=== PATIENT | male | born 1950 | race Caucasian/White ===

== ENCOUNTER → 2018-02-03 14:46 | Outpatient (CLI) | payer MEDICARE, OTHER, SELFPAY ==
--- NOTE | 2018-02-03 14:52 | MR_ITS ---
MR shoulder RT wo con HISTORY: Right shoulder pain radiating into the arm with limited range of motion ITS.REASON: ACUTE PAIN OF RIGHT SHOULDER ORDERING PHYSICIAN: Nathanael Acevedo MD PATIENT AGE: 67 years COMPARISON: None TECHNIQUE: Standard multiplanar multiecho sequences are performed without contrast. FINDINGS: There is mild hypertrophic change along the undersurface of the acromion with mild subacromial stenosis. Mild acromioclavicular arthropathy also noted. There is mild thickening with increased T2 signal of the supraspinatus tendon consistent with tendinopathy/tendinosis. Minimal amount fluid is present in the distal aspect of the supraspinatus tendon posteriorly linear in nature and may represent partial tear. A complete tear with tendinous and muscle retraction not apparent. The infraspinatus tendon is intact. There is some mild thickening of the first benign is tendon with increased T2 signal consistent with tendinopathy/tendinosis. Subscapularis and teres minor tendons are intact. No evidence of labral tear. No bone bruise or fracture. IMPRESSION: 1. Acromioclavicular arthropathy with subacromial stenosis and minimal spurring along the undersurface of the acromion which may result in impingement symptomatology. 2. Tendinopathy/tendinosis of both supraspinatus and infraspinatus tendons with suspected partial linear tear of the distal aspect of the supraspinatus tendon posteriorly IMPRESSION:
== END ==
PROVIDERS: Family Provider Physician Assistant; PCP Family Medicine; Visit Provider Family Medicine
DX: M25.511 Pain in right shoulder (principal)
CPT/HCPCS: 73221

== ENCOUNTER → 2020-12-02 13:43 | Outpatient (CLI) | payer MEDICARE, BC, SELFPAY ==
--- NOTE | 2020-12-02 13:55 | XR_ITS ---
PROCEDURE: XR CHEST PORTABLE CLINICAL HISTORY: COVID SCREENING Cough COMPARISON: CR CXR CHEST(2 VIEWS-NOT PORTABLE) from 09/22/2016 CR CXR CHEST(2 VIEWS-NOT PORTABLE) from 12/04/2016 FINDINGS: The cardiomediastinal silhouette and pulmonary vascularity are within normal limits. COPD. Old granulomatous disease. Faint ground-glass attenuation right lower lobe laterally suspicious for infiltrate. Probable chronic changes left lower lobe. IMPRESSION: Suspect infiltrate in the right lower lobe laterally with chronic changes Dictated by: Derrek Lucero MD 12/02/2020 16:36 Derrek Lucero MD in [place] 12/02/2020 16:36
[2020-12-02 15:12] LABS: Basophils % 0.5 % (0.1-2.0); Eosinophils # 0.1 K/mm3 (0.0-0.4); Eosinophils % 0.7 % (0.1-12.0); Hematocrit 46.4 % (42.0-52.0); Hemoglobin 15.6 g/dL (14.1-18.0); Lymphocytes # 1.8 K/mm3 (0.7-4.5); Lymphocytes % 18.7 % (10-50); Mean Corpuscular HGB Conc 33.6 g/dL (31.8-35.4); Mean Corpuscular Hemoglobin 33.1 pg (27.0-31.2); Mean Corpuscular Volume 98.6 fl (80-94); Mean Platelet Volume 7.8 fl (7.4-10.4); Monocytes # 0.5 K/mm3 (0.1-1.0); Monocytes % 5.3 % (1.7-9.3); Neutrophils % 74.8 % (37.0-80.0); Platelet Count 235 K/mm3 (142-424); Red Blood Count 4.71 M/mm3 (4.60-6.20); Red Cell Distribution Width 13.6 % (11.5-17.5); White Blood Count 9.3 K/mm3 (4.8-10.8)
[2020-12-03 10:41] LABS: Covid-19 Nasal PCR Sendout P&C Negative
== END ==
PROVIDERS: PCP Physician Assistant; Visit Provider Nurse Practitioner
DX: Z20.822 Contact with and (suspected) exposure to COVID-19 (principal)
CPT/HCPCS: 36415; 71045; 85025; 87275; 87276; U0004

== ENCOUNTER → 2021-09-05 07:38 | Outpatient (CLI) | payer MEDICARE, BC, SELFPAY ==
--- NOTE | 2021-09-05 | CA_ITS ---
APPROVED REPORT Exam: Pharmacologic Technologist: Alba Ko, Ht: 5 ft 9 in Wt: 157 lbs BSA: 1.86 m2 HR: 65 bpm BP: 151/73 mmHg Rhythm: SINUS NATASHA Medical History Medications: Aspirin,,,,, Vitamin B12,,,,, Allergies: No known drug allergies Cardiac Risk Factors: Smoking Stress Test Details Test: LEXISCAN HR Resting HR: 63 bpm Max Heart Rate (APMHR): 150.125656 bpm Max HR Achieved: 104 bpm Target HR (85% APMHR): 127.729220 bpm % of APMHR: 69.33 Recovery HR: 91 bpm BP Resting BP: 151/73 mmHg Max BP: 159/93 mmHg Recovery BP: 159.0/93.0 mmHg ECG Resting ECG: SINUS NATASHA Clinical Reason for Termination: Completed Protocol Exercise duration: 04:01 min Highest Stage Achieved: Exercise capacity: 1.0 METs Stress ECG Conclusion PT HAD NO CP. <1.[address] SEGMENT CHANGES. NON-DIAGNOSTIC Electronically signed by : Sher Cohn MD 09/05/2021 14:29:55
--- NOTE | 2021-09-05 07:42 | NM_ITS ---
APPROVED REPORT Exam: Nuclear Stress Test Indication: C.P., TOB USE, FATIGUE Patient Location: Outpatient Stress Tech: Alba Ko NC Tech:EMELY Magallanes RT (R)(N)(M) Ht: 5 ft 9 in Wt: 157 lbs HR: 63 bpm BP: 151/73 mmHg BSA: 1.86 m2 BMI: 23.1 History: C.P., TOB USE, FATIGUE Procedure: Patient received a 0.4 mg of intravenous Lexiscan, resting heart rate 63 bpm, resting blood pressure 151/73 mmHg, with Lexiscan maximum heart rate achived was 101 bpm which is Less than 85 % of the maximum predicted heart rate and blood pressure was 140/77 mmHg. With Lexiscan, patient denied any complaint of chest pain. Electrocardiogram Resting electrocardiogram shows sinus rhythm, with Lexiscan there is less than 1.[address] segment depression noted from the baseline EKG. The EKG portion of the Lexiscan is nondiagnostic. Cardiac Stress and Resting SPECT Images: Cardiac Stress and Resting SPECT images were obtained using technetium 99m Myoview 31.4 mCi stress and 10.83 mCi at rest. Gated SPECT for analysis of segmental wall motion and calculation of the ejection fraction also done. Prone images were also obtained. Cardiac stress and resting SPECT images show a fixed defect involving the inferior apical wall consistent with area of myocardial scarring without significant stephen-infarct ischemia, computer derived ejection fraction is 48% with moderate inferior apical wall hypokinesis. Right ventricle is mildly enlarged with normal contractility. Conclusion: 1. The EKG portion of the Lexiscan is nondiagnostic. 2. Scintigraphic evidence of myocardial scarring involving the inferior apical wall, compared right ejection fraction 48% with segmental wall motion abnormalities described above, right ventricle is mildly enlarged with normal contractility. 3. Abnormal Lexiscan Myoview study. Electronically signed by : Sumeet Pressley MD 09/11/2021 14:49:05
== END ==
PROVIDERS: PCP Physician Assistant; Visit Provider Physician Assistant
DX: R07.9 Chest pain, unspecified (principal)
CPT/HCPCS: 78452; 93017; A9502; J2785

== ENCOUNTER → 2021-09-18 11:09 | Outpatient (CLI) | payer MEDICARE, BC, SELFPAY ==
--- NOTE | 2021-09-18 11:16 | CA_ITS ---
APPROVED REPORT Mixer Operator Tablets: Dana Son RVT Laterality: Bilateral Study Quality: ExcellentGood Indications: carotid bruit Risk Factors Smoking Doppler Spectral Velocity Analysis ECA (R) 61.70/12.90 cm/s ECA (L) 78.80/14.60 cm/s dICA (R) 89.10/38.60 cm/s dICA (L) 87.40/38.60 cm/s Hubert (R) 86.50/34.30 cm/s Hubert (L) 75.40/30.80 cm/s pICA (R) 66.80/30.80 cm/s pICA (L) 65.10/25.70 cm/s dCCA (R) 51.40/13.70 cm/s dCCA (L) 42.80/12.00 cm/s pCCA (R) 56.70/15.00 cm/s pCCA (L) 67.70/24.00 cm/s Vert (R) 33.40/12.00 cm/s Vert (L) 39.20/13.50 cm/s ICA/CCA 1.73 ICA/CCA 2.04 Findings Study suggests less than 20% stenosis of the right internal cartoid artery. Study suggests less than 20% stenosis of the left internal cartoid artery. Antegrade flow seen bilateral vertebral arteries. Conclusion Study suggests less than 20% stenosis of the right internal cartoid artery. Study suggests less than 20% stenosis of the left internal cartoid artery. Antegrade flow seen bilateral vertebral arteries. Electronically signed by : Derrek Lucero MD 09/18/2021 16:21:14
--- NOTE | 2021-09-18 11:16 | CA_ITS ---
APPROVED REPORT EXAM: Comprehensive 2D, Doppler, and color-flow Echocardiogram Assistant Oceanographer: Yany Tubbs, RCS, RVS Ht: 5 ft 9 in Wt: 159lbs BSA: 1.87 BP: 129/80 mmHg Indications: abn stress, CP, Smoker 2D Dimensions IVSd 1.04 cm M: 0.6-1.2 LVEF (Visual) 49.80 % PWd 1.05 cm M: 0.6 - 1.2 LVDd 4.13 cm M: 4.2 - 5.9 LVDs 3.10 cm M: 2.5 - 4.0 Aortic Root 4.02 cm M: 3.1 - 3.7 Left Atrium 3.30 cm M: 3.0 - 4.0 LVOT 2.12 cm (M/F) 1.5-2.5 M-Mode Dimensions LA Diam 2.84 cm (1.9-4.0) LVDd 5.10 cm (3.5-5.7) Ao Diam 3.57 cm (2.0-3.7) LVDs 3.80 cm (3.5-5.7) EF (Teich) 49.90% EPSs 0.18 cm FS 25.50% EDV (Teich) 123.80 mL TAPSE 2.15 (<1.7) ESV (Teich) 62.00 mL LV Diastology E Decel Time 190.00 (160-240 msec) E/A Ratio 0.60 MED E' 8.50 (< 7 cm/sec) MED A' 13.80 cm/s E'/MED E' Ratio 5.72 (>14) LAT E' 8.80 (<10 cm/sec) LAT A' 15.00 cm/s E/LAT E' Ratio 5.52 (>14) Aortic Valve LVOT Max 83.00 (70-110 cm/s) LVOT VTI 16.34 cm AoV Peak Moi. 101.00 (50-130 cm/s) AO Peak GR. 4.10 mmHg AO Mean GR. 2.00 (<5 mmHg) AO VTI 17.03 (18-25 cm) TAY (VTI) 3.39 (2.5-4.5 cm2) Mitral Valve MV A Velocity 81.00 (40-130 cm/s) E/A Ratio 0.60 MV Decel. Time 190.00 (160-240 ms) MV Mean Gr. 1.20 (<2mmHg) Pulmonary Valve PV Peak Velocity 80.00 (50-150 cm/s) Tricuspid Valve TR P. Velocity 153.00 cm/s RAP Estimate 10.00 mmHg RVSP 19.30 mmHg Left Ventricle Left atrium is mildly enlarged, left ventricle is normal size, mild concentric left ventricular hypertrophy, visually estimated ejection fraction 55% with no regional wall motion abnormality, grade 1 diastolic dysfunction seen without tissue Doppler evidence of raise left atrial pressure. Right Ventricle Right atrium and right ventricle are normal size and contractility. Aortic Valve Aortic valve is thickened and calcified without aortic stenosis or aortic insufficiency. Mitral Valve Mitral valve is grossly normal, there is trace mitral regurgitation. Tricuspid Valve Tricuspid valve grossly normal, there is trace tricuspid regurgitation, tricuspid regurgitation jet velocity is inadequate for calculation of the right ventricular systolic pressure. Pulmonic Valve Pulmonic valve is poorly visualized. Great Vessels Aortic root and ascending aorta is enlarged measuring 4.0 cm. Inferior vena cava is normal size with normal inspiratory collapse. Pericardium No significant pericardial effusion noted. Conclusion 1. Mildly enlarged left atrium, normal left ventricular size, mild concentric left ventricular hypertrophy, visually estimated ejection fraction 55% with no regional wall motion abnormality, grade 1 diastolic dysfunction seen without tissue Doppler evidence of raise left atrial pressure. 2. Thickened and calcified aortic valve without aortic stenosis or aortic insufficiency, aortic root and ascending aorta is enlarged measuring 4.0 cm, if clinically indicated CT scan of the chest with contrast is recommended to exclude presence of thoracic aneurysm. 3. Trace mitral and tricuspid regurgitation. 4. No significant pericardial effusion noted. 5. Inferior vena cava is normal size with normal inspiratory collapse. Electronically signed by : Sumeet Pressley MD 09/19/2021 10:46:19
== END ==
PROVIDERS: PCP Physician Assistant; Visit Provider Internal Medicine Cardiovascular Disease
DX: I20.9 Angina pectoris, unspecified (principal); K21.9 Gastro-esophageal reflux disease without esophagitis; R00.0 Tachycardia, unspecified; R06.00 Dyspnea, unspecified; R94.30 Abnormal result of cardiovascular function study, unspecified; R94.31 Abnormal electrocardiogram [ECG] [EKG]; Z72.0 Tobacco use; R09.89 Other specified symptoms and signs involving the circulatory and respiratory systems
CPT/HCPCS: 93306; 93880

== ENCOUNTER → 2021-09-19 10:11 | Outpatient (CLI) | payer MEDICARE, BC, SELFPAY ==
--- NOTE | 2021-09-19 10:15 | XR_ITS ---
PROCEDURE: XR CHEST PORTABLE CLINICAL HISTORY: COVID OUTPATIENT COMPARISON: CR CXR CHEST(2 VIEWS-NOT PORTABLE) from 09/22/2016 CR CXR CHEST(2 VIEWS-NOT PORTABLE) from 12/04/2016 CR XR CHEST PORTABLE from 12/02/2020 FINDINGS: The cardiomediastinal silhouette and pulmonary vascularity are within normal limits. The lungs are clear without infiltrates, suspicious nodules, or pleural effusions. There may be some minimal postinflammatory scarring in both lower lobes. There is a faint density left upper lobe projecting over the anterior aspect of the left 2nd rib which could be a small postinflammatory scar. No acute bony abnormalities. IMPRESSION: No acute findings. Dictated by: Dr. Vern Armstrong MD 09/19/2021 11:24 Dr. Vern Armstrong MD in [place] 09/19/2021 11:24
[2021-09-19 11:28] LABS: Basophils % 0.6 % (0.1-2.0); Eosinophils # 0.1 K/mm3 (0.0-0.4); Hematocrit 42.4 % (42.0-52.0); Hemoglobin 14.2 g/dL (14.1-18.0); Lymphocytes % 16.7 % (10-50); Mean Corpuscular HGB Conc 33.6 g/dL (31.8-35.4); Mean Corpuscular Hemoglobin 32.2 pg (27.0-31.2); Mean Corpuscular Volume 95.8 fl (80-94); Mean Platelet Volume 8.3 fl (7.4-10.4); Monocytes # 0.4 K/mm3 (0.1-1.0); Monocytes % 6.1 % (1.7-9.3); Neutrophils # 4.5 K/mm3 (1.8-7.8); Neutrophils % 75.5 % (37.0-80.0); Platelet Count 195 K/mm3 (142-424); Red Blood Count 4.43 M/mm3 (4.60-6.20); Red Cell Distribution Width 13.7 % (11.5-17.5)
== END ==
PROVIDERS: PCP Physician Assistant; Visit Provider Physician Assistant
DX: Z20.822 Contact with and (suspected) exposure to COVID-19 (principal)
CPT/HCPCS: 36415; 71045; 85025; C9803; U0003; U0005

== ENCOUNTER → 2021-10-13 13:21 | Outpatient (CLI) | payer MEDICARE, BC, SELFPAY ==
[2021-10-13 14:21] LABS: Basophils # 0.1 K/mm3 (0-0.2); Basophils % 0.7 % (0.1-2.0); Eosinophils # 0.1 K/mm3 (0.0-0.4); Eosinophils % 1.1 % (0.1-12.0); Hematocrit 40.4 % (42.0-52.0); Hemoglobin 13.8 g/dL (14.1-18.0); Lymphocytes # 1.3 K/mm3 (0.7-4.5); Lymphocytes % 19.1 % (10-50); Mean Corpuscular HGB Conc 34.3 g/dL (31.8-35.4); Mean Corpuscular Hemoglobin 32.1 pg (27.0-31.2); Mean Corpuscular Volume 93.5 fl (80-94); Monocytes # 0.4 K/mm3 (0.1-1.0); Monocytes % 5.9 % (1.7-9.3); Neutrophils % 73.2 % (37.0-80.0); Platelet Count 228 K/mm3 (142-424); Red Blood Count 4.32 M/mm3 (4.60-6.20); White Blood Count 6.8 K/mm3 (4.8-10.8)
[2021-10-13 14:45] LABS: Chloride 107 mmol/L (98-107); Potassium 4.2 mmoL/L (3.5-5.1); Sodium 141 mmol/L (136-145)
[2021-10-13 14:48] LABS: Blood Urea Nitrogen 14 mg/dl (9-20); Estimated Glomerular Filt Rate 60 ml/min (>60); GFR (African American) 72 ML/MIN (>60)
[2021-10-13 14:49] LABS: Anion Gap 11.2 mEq/L (5-15); Calcium 11.1 mg/dl (8.4-10.2); Carbon Dioxide 27 mmol/L (22.0-30.0); Glucose 84 mg/dl (74-100)
== END ==
PROVIDERS: Visit Provider Internal Medicine Cardiovascular Disease
DX: I20.9 Angina pectoris, unspecified (principal); K21.9 Gastro-esophageal reflux disease without esophagitis; R00.0 Tachycardia, unspecified; R09.89 Other specified symptoms and signs involving the circulatory and respiratory systems; R94.30 Abnormal result of cardiovascular function study, unspecified; R94.31 Abnormal electrocardiogram [ECG] [EKG]; Z72.0 Tobacco use; Z01.812 Encounter for preprocedural laboratory examination; U07.1 COVID-19
CPT/HCPCS: 36415; 80048; 85025; C9803; U0003; U0005

== ENCOUNTER 2021-10-28 09:10 | Day surgery (SDC) | payer MEDICARE, BC, SELFPAY ==
[2021-10-28] VITALS (14 sets, daily range): BP systolic 115–161; BP diastolic 67–87; PULSE 71–100; RESP 18; TEMP 36.9; O2SAT 92–98; BMI 23.4
[2021-10-28 09:48] LABS: Coronavirus 19, PCR Not Detected (NotDetected); Influenza A, PCR Not Detected (NotDetected); Influenza B, PCR Not Detected (NotDetected)
[2021-10-28 09:49] LABS: Basophils % 0.4 % (0.1-2.0); Eosinophils % 0.3 % (0.1-12.0); Hemoglobin 14.4 g/dL (14.1-18.0); Lymphocytes # 1.4 K/mm3 (0.7-4.5); Lymphocytes % 18.2 % (10-50); Mean Corpuscular HGB Conc 32.8 g/dL (31.8-35.4); Mean Corpuscular Hemoglobin 31.6 pg (27.0-31.2); Mean Corpuscular Volume 96.3 fl (80-94); Mean Platelet Volume 7.3 fl (7.4-10.4); Monocytes # 0.4 K/mm3 (0.1-1.0); Monocytes % 5.3 % (1.7-9.3); Neutrophils % 75.8 % (37.0-80.0); Platelet Count 269 K/mm3 (142-424); Red Blood Count 4.57 M/mm3 (4.60-6.20); White Blood Count 7.9 K/mm3 (4.8-10.8)
[2021-10-28 09:51] LABS: Chloride 107 mmol/L (98-107)
[2021-10-28 09:52] LABS: Potassium 3.9 mmoL/L (3.5-5.1); Sodium 141 mmol/L (136-145)
[2021-10-28 09:55] LABS: Anion Gap 12.9 mEq/L (5-15); Blood Urea Nitrogen 19 mg/dl (9-20); Calcium 10.7 mg/dl (8.4-10.2); Carbon Dioxide 25 mmol/L (22.0-30.0); Creatinine Clearance Estimated 64 mL/min (50-200); Estimated Glomerular Filt Rate 66 ml/min (>60); GFR (African American) 80 ML/MIN (>60); Glucose 94 mg/dl (74-100)
[2021-10-28 14:12] LABS: CATHL Activated Clotting Time > 400 SEC (74-125)
--- NOTE | 2021-10-28 14:21 | HMH.PHACLD ---
Juni Li has received discharge medication counseling on the following medications: -ASA -BRILINTA (HOW TO TAKE, WHAT TO EXPECT, IF YOU BUMP HEAD BE SEEN TO R/O BLEED, BLEED RISK) -BISOPROLOL (WATCH FOR DIZZINESS, TAKE IT SLOW WHEN GOING FROM LAYING TO SITTING/SITTING TO STANDING) -ROSUVASTATIN -KEMI/ARB-NOT INDICATED DUE TO HYPOTENSIVE ISSUES IN THE PAST PER PATIENT.
== END 2021-10-28 14:38 | disposition home or self-care (01) ==
LOC: CATHLAB 09:11
PROVIDERS: PCP Physician Assistant; Visit Provider Internal Medicine
DX: R94.39 Abnormal result of other cardiovascular function study (principal); I25.10 Atherosclerotic heart disease of native coronary artery without angina pectoris; Z79.899 Other long term (current) drug therapy; K21.9 Gastro-esophageal reflux disease without esophagitis; F17.210 Nicotine dependence, cigarettes, uncomplicated; Z20.822 Contact with and (suspected) exposure to COVID-19
CPT/HCPCS: 80048; 85025; 85347; 92928; 93458; 99152; C1725; C1769; C1874; C9600; C9803; J1644; Q9967; U0003; U0005

== ENCOUNTER → 2021-11-03 15:52 | Outpatient (CLI) | payer MEDICARE, BC, SELFPAY ==
--- NOTE | 2021-11-03 15:55 | CT_ITS ---
PROCEDURE: CT ABDOMEN PELVIS WO CON CLINICAL INDICATION: RENAL COLIC COMPARISON: CT ABDPELW/O CT ABD PELVIS W/O CONTRAST from 07/03/2016 CR XR CHEST PORTABLE from 09/19/2021 TECHNIQUE: Axial images obtained with sagittal and coronal reformats. All CT scans at the facility use one or more dose reduction, viz: automated exposure control, ma/kV adjustment per patient size (including targeted exams where dose is matched to indication, i.e. head), or iterative reconstruction technique. FINDINGS: LOWER THORAX: COPD changes with centrilobular emphysema. Calcified granulomas present in the right lung base laterally. A nodular opacity is present in the right posterior costophrenic sulcus at 8 mm not readily apparent on the previous exam. Calcifications present along the right heart border ABDOMEN & PELVIS: The liver has an unremarkable appearance. Gallstones are noted. The spleen, adrenal glands, and pancreas have an unremarkable appearance. There are bilateral renal calculi which have increased in number since the previous exam. The largest stone on the right is in the upper pole and measures 5 mm. The largest on the left is in the lower pole and measures 6 mm. No ureteral calculi are evident. The urinary bladder is somewhat distended. The prostate is enlarged at 4.3 by 3.6 cm. No intestinal obstruction or free air. There is a mild amount of retained colonic feces in the ascending colon and transverse colon. There is mild lumbar scoliosis convex right with degenerative changes in the lumbar spine. IMPRESSION: 1. Bilateral nephrolithiasis. No ureteral calculi or hydronephrosis. 2. Mildly distended urinary bladder 3. Cholelithiasis Dictated by: Derrek Lucero MD 11/03/2021 16:33 Derrek Lucero MD in [place] 11/03/2021 16:33
== END ==
PROVIDERS: PCP Family Medicine; Visit Provider Family Medicine
DX: N23 Unspecified renal colic (principal)
CPT/HCPCS: 74176

== ENCOUNTER → 2021-11-13 14:17 | Outpatient (CLI) | payer MEDICARE, BC, SELFPAY ==
--- NOTE | 2021-11-13 14:20 | CA_ITS ---
FINAL REPORT CLINICAL HISTORY: S/P CATH ON 10/29/21, C/O RT WRIST PAIN,R/O PSEUDO FINDINGS: DUPLEX SCAN UPPER EXTREMITY ARTERIES Doppler exam of major artery of the right wrist was performed. There is no evidence of pseudoaneurysm or AV fistula. No hematoma is identified. IMPRESSION. Negative for pseudoaneurysm or AV fistula. Reviewed, Interpreted and Dictated by Zack Lemon MD Transcribed by Abby Castro Authenticated by Zack Lemon MD on 11/13/2021 03:54:06 PM [facility]
== END ==
PROVIDERS: PCP Family Medicine; Visit Provider Physician Assistant
DX: I20.9 Angina pectoris, unspecified (principal); K21.9 Gastro-esophageal reflux disease without esophagitis; R00.0 Tachycardia, unspecified; R06.00 Dyspnea, unspecified; R09.89 Other specified symptoms and signs involving the circulatory and respiratory systems; R11.10 Vomiting, unspecified; R94.31 Abnormal electrocardiogram [ECG] [EKG]; Z72.0 Tobacco use
CPT/HCPCS: 93931

== ENCOUNTER 2022-02-03 19:33 | Observation (INO) | payer MEDICARE, BC, SELFPAY ==
[2022-02-03] VITALS (8 sets, daily range): BP systolic 91–108; BP diastolic 53–63; PULSE 69–96; RESP 17–28; TEMP 36.9–37.9; O2SAT 93–98; BMI 23.1; BMI 23.2; BMI 27.6
[2022-02-03 20:48] LABS: UTC Influenza A Antigen Negative (Negative); UTC Influenza B Antigen Negative (Negative)
--- NOTE | 2022-02-03 20:54 | XR_ITS ---
PROCEDURE INFORMATION: Exam: XR Chest Exam date and time: 02/03/2022 9:00 PM Age: 71 years old Clinical indication: Cough and shortness of breath; Additional info: Cough and SOB TECHNIQUE: Imaging protocol: XR of the chest. Views: 2 views. COMPARISON: CR XR CHEST PORTABLE 09/19/2021 11:15 AM FINDINGS: Lungs: Coarse interstitial lung markings likely chronic. Granulomatous changes. No consolidation. Pleural spaces: Unremarkable. No pleural effusion. No pneumothorax. Heart/Mediastinum: Large hiatal hernia. Bones/joints: Unremarkable. IMPRESSION: No acute findings.
--- NOTE | 2022-02-03 20:55 | HMH.EDUTC ---
[facility] [place] Disposition Condition on Discharge: Fair Time of Disposition: 21:13 <DeutschKadi smith E - Last Filed: 02/03/22 22:04> <Tushar Melvin - Last Filed: 02/04/22 00:07> Clinical Impression: Shortness of breath, Acute exacerbation of chronic obstructive airways disease, SIRS (systemic inflammatory response syndrome), Tobacco use CAD (coronary artery disease) Qualifiers: Coronary Disease-Associated Artery/Lesion type: ute artery [place] vs. transplanted heart: ute heart Associated angina: unspecified whether angina present Qualified Code(s): I25.10 - Atherosclerotic heart disease of ute coronary artery without angina pectoris Disposition: Admitted As Inpatient Medical Decision Making - Kyree Inquiry Pt receiving controlled substance: No Kyree was queried for this patient: No - Lab Data Lab results reviewed: Yes: I reviewed the patient's lab results. Result diagrams: 02/03/22 21:29 02/03/22 21:29 <Kadi Deutsch E - Last Filed: 02/03/22 22:04> - Lab Data Result diagrams: 02/03/22 21:29 02/03/22 21:29 - Radiology Data #1 Image(s): Chest Image Reviewed: Yes I have reviewed radiologist's interpretation Preliminary Findings: Normal/NAD - CT Data CT Scan: Chest Time Received: 23:[address] Reviewed: Yes: I have viewed the radiologist's interpretation Preliminary Findings: Abnormal - ECG Data Tracing #1 Normal Sinus Rhythm: Yes Ischemic changes: non-specific ST-T wave changes ECG compared to prior tracings: there are no significant changes - Physician Consults Physician Consulted: senia Reason -: Admission Additional Consult: lyn Reason -: Pt condition <Tushar Melvin - Last Filed: 02/04/22 00:07> Vital Signs: 02/03/22 20:38 02/03/22 21:15 02/03/22 21:16 Temperature 98.5 F 100.2 F H Temperature Source Oral Rectal Pulse Rate 88 Pulse Rate [Left] 96 H 78 Respiratory Rate 28 H 24 Blood Pressure 108/57 L Blood Pressure [Right Arm] 102/63 L 108/57 L Blood Pressure Mean 72 Blood Pressure Mean [Right Arm] 76 74 02 Sat by Pulse Oximetry 94 L 95 93 L Oxygen Delivery Method Room Air 02/03/22 21:35 02/03/22 22:00 02/03/22 22:30 Temperature Temperature Source Pulse Rate 82 83 76 Pulse Rate [Left] Respiratory Rate 17 19 19 Blood Pressure 91/56 L 100/55 L 94/53 L Blood Pressure [Right Arm] Blood Pressure Mean 63 62 Blood Pressure Mean [Right Arm] 02 Sat by Pulse Oximetry 95 98 97 Oxygen Delivery Method Room Air 02/03/22 23:00 02/03/22 23:30 Temperature Temperature Source Pulse Rate 74 69 Pulse Rate [Left] Respiratory Rate 19 21 Blood Pressure 99/60 L 96/55 L Blood Pressure [Right Arm] Blood Pressure Mean Blood Pressure Mean [Right Arm] 02 Sat by Pulse Oximetry 95 95 Oxygen Delivery Method Room Air Room Air - Lab Data Lab Results 02/03/22 20:35: Influenza Type A Ag Negative, Influenza Type B Ag Negative 02/03/22 21:21: SARS-CoV-2 (PCR) Not detected, Influenza A Untype (PCR) Not detected, Influenza Type B (PCR) Not detected 02/03/22 21:29: WBC 16.8 H, RBC 4.58 L, Hgb 14.9, Hct 44.6, MCV 97.4 H, MCH 32.6 H, MCHC 33.4, RDW 13.3, Plt Count 216, MPV 8.8, Neut % (Auto) 91.3 H, Lymph % (Auto) 4.6 L, [place] % (Auto) 3.2, Eos % (Auto) 0.6, Baso % (Auto) 0.3, Neut # (Auto) 15.3 H, Lymph # (Auto) 0.8, [place] # (Auto) 0.5, Eos # (Auto) 0.1, Baso # (Auto) 0.1, Total Counted 100, Neutrophils % (Manual) 86 H, Lymphocytes % (Manual) 13, Monocytes % (Manual) 1 L, Platelet Estimate Normal, RBC Morphology Not Reportable, Macrocytosis 1+, ESR 16 02/03/22 21:29: Sodium 135 L, Potassium 4.2, Chloride 105, Carbon Dioxide 20 L, Anion Gap 14.2, BUN 25 H, Creatinine 1.30 H, Estimated Creat Clear 52, Estimated GFR 54 L, Est GFR ( Amer) 66, Glucose 132 H, Calcium 11.1 H, Total Bilirubin 1.0, AST 30, ALT 21, Alkaline Phosphatase 116, Troponin I < 0.01, C-Reactive Protein 37.3 H, Total Protein 7.5, Albumin 4.6, Globulin 2.9, Albumin/Globulin Rati
--- NOTE | 2022-02-03 21:20 | ECG_ITS ---
APPROVED REPORT Exam: Resting ECG HR:76 bpm ECG Measurements Heart Rate 76 AXES MO 155 P 77 QRSd 101 QRS 66 QT 380 T 84 QTc 411 Conclusion SINUS RHYTHM NORMAL ECG UNCONFIRMED REPORT Electronically signed by : Kenny Carter MD 02/05/2022 16:04:20
--- NOTE | 2022-02-03 21:22 | CT_ITS ---
PROCEDURE INFORMATION: Exam: CTA Chest With Contrast Exam date and time: 02/03/2022 10:12 PM Age: 71 years old Clinical indication: Patient HX: Shortness of breath, cough; Additional info: SOA TECHNIQUE: Imaging protocol: Computed tomographic angiography of the chest with contrast. 3D rendering (Not supervised by radiologist): MIP and/or 3D reconstructed images were created by the technologist. Radiation optimization: All CT scans at this facility use at least one of these dose optimization techniques: automated exposure control; mA and/or kV adjustment per patient size (includes targeted exams where dose is matched to clinical indication); or iterative reconstruction. Contrast material: ISOVUE 370; Contrast volume: 70 ml; Contrast route: INTRAVENOUS (IV); COMPARISON: CR XR CHEST 2V 02/03/2022 9:00 PM FINDINGS: Pulmonary arteries: Normal. No pulmonary emboli. Aorta: Unremarkable. No aortic aneurysm. No aortic dissection. Lungs: Chronic interstitial lung disease. Emphysema. 5 mm pulmonary nodule in the right upper lobe series 5, image number 42, series 5, image number 48, left upper lobe series 5, image number 15, 1 cm nodule left upper lobe series 5, image number 27. Dependent atelectasis in the lung bases. Pleural spaces: Unremarkable. No pneumothorax. No pleural effusion. Heart: Unremarkable. No cardiomegaly. No pericardial effusion. Lymph nodes: Unremarkable. No enlarged lymph nodes. Bones/joints: Unremarkable. No acute fracture. Soft tissues: Unremarkable. IMPRESSION: 1. No pulmonary embolism. 2. Bilateral pulmonary nodules. 3. No pneumonia. For patients at low risk (minimal or absent history of smoking and of other known risk factors), no routine follow-up is indicated. For patients at high risk (history of smoking or of other known risk factors), consider optional CT at 12 months. (will Conway., Fleischner Society, 2017)
[2022-02-03 21:26] LABS: Coronavirus 19, PCR Not Detected (NotDetected); Influenza A, PCR Not Detected (NotDetected); Influenza B, PCR Not Detected (NotDetected)
[2022-02-03 21:37] LABS: Basophils # 0.1 K/mm3 (0-0.2); Basophils % 0.3 % (0.1-2.0); Eosinophils # 0.1 K/mm3 (0.0-0.4); Eosinophils % 0.6 % (0.1-12.0); Hematocrit 44.6 % (42.0-52.0); Hemoglobin 14.9 g/dL (14.1-18.0); Lymphocytes # 0.8 K/mm3 (0.7-4.5); Lymphocytes % 4.6 % (10-50); Mean Corpuscular HGB Conc 33.4 g/dL (31.8-35.4); Mean Corpuscular Hemoglobin 32.6 pg (27.0-31.2); Mean Corpuscular Volume 97.4 fl (80-94); Mean Platelet Volume 8.8 fl (7.4-10.4); Monocytes # 0.5 K/mm3 (0.1-1.0); Monocytes % 3.2 % (1.7-9.3); Neutrophils # 15.3 K/mm3 (1.8-7.8); Neutrophils % 91.3 % (37.0-80.0); Platelet Count 216 K/mm3 (142-424); Red Blood Count 4.58 M/mm3 (4.60-6.20); Red Cell Distribution Width 13.3 % (11.5-17.5); White Blood Count 16.8 K/mm3 (4.8-10.8)
[2022-02-03 21:52] LABS: Alanine Aminotransferase 21 U/L (12-78); Albumin Level 4.6 g/dl (3.5-5.0); Albumin/Globulin Ratio 1.6 (1.1-1.8); Alkaline Phosphatase 116 U/L (38-126); Anion Gap 14.2 mEq/L (5-15); Aspartate Amino Transferase 30 U/L (17-59); Blood Urea Nitrogen 25 mg/dl (9-20); Calcium 11.1 mg/dl (8.4-10.2); Carbon Dioxide 20 mmol/L (22.0-30.0); Chloride 105 mmol/L (98-107); Creatinine Clearance Estimated 52 mL/min (50-200); Estimated Glomerular Filt Rate 54 ml/min (>60); GFR (African American) 66 ML/MIN (>60); Globulin 2.9 g/dL (1.3-3.2); Glucose 132 mg/dl (74-100); MANUAL DIFFERENTIAL MANUAL DIFFERENTIAL (MANUAL DIFF); Potassium 4.2 mmoL/L (3.5-5.1); Sodium 135 mmol/L (136-145); Total Protein,Serum 7.5 g/dl (6.3-8.2)
[2022-02-03 21:58] LABS: C-Reactive Protein 37.3 mg/L (0-4)
[2022-02-03 22:04] LABS: Erythrocyte Sedimentation Rate 16 mm/hr (0-20); NT Pro Brain Natriuretic Pep. 417 pg/mL (0-125)
[2022-02-03 22:08] LABS: Troponin I < 0.01 ng/ml (0.00-0.034)
[2022-02-03 22:11] LABS: Procalcitonin 0.278 ng/mL (0.0-2.0)
[2022-02-03 23:13] LABS: Lymphocytes % 13 % (10-50); Macrocytosis 1+; Monocytes % 1 % (2-9); Neutrophils % 86 % (42-76); Platelet Estimate Normal; Total Cells Counted 100
[2022-02-03 23:29] LABS: Lactic Acid 1.3 mmol/L (0.7-2.1)
[2022-02-04] VITALS (11 sets, daily range): BP systolic 96–122; BP diastolic 59–71; PULSE 60–79; RESP 16–24; TEMP 36.5–37.3; O2SAT 92–99; BMI 21.9
--- NOTE | 2022-02-04 00:29 | PC.NURSE ---
pt arrived to floor via stretcher at this time
[2022-02-04 00:56] LABS: Troponin I < 0.01 ng/ml (0.00-0.034)
[2022-02-04 02:10] LABS: Microscopic, Urine URINE MICROSCOPIC (MICROSCOPIC)
[2022-02-04 02:19] LABS: Appearance,Urine CLEAR (Clear); Bilirubin,Urine Negative (Negative); Blood, Urine 1+ (Negative); Color,Urine YELLOW (Yellow); Glucose,Urine (UA) Negative (Negative); Ketones,Urine Negative (Negative); Leukocyte Esterase,Urine Negative (Negative); Nitrate,Urine Negative (Negative); Protein,Urine Negative (Negative)
[2022-02-04 02:35] LABS: Bacteria,Urine 1+ /lpf; Squamous Epithelial Cell,Urine Occasional #/hpf (0-5)
[2022-02-04 03:54] LABS: Troponin I < 0.01 ng/ml (0.00-0.034)
[2022-02-04 06:24] LABS: Basophils % 0.1 % (0.1-2.0); Lymphocytes # 0.5 K/mm3 (0.7-4.5); Mean Corpuscular Hemoglobin 32.7 pg (27.0-31.2)
[2022-02-04 06:33] LABS: Anion Gap 11.2 mEq/L (5-15); Blood Urea Nitrogen 21 mg/dl (9-20); Calcium 10.5 mg/dl (8.4-10.2); Carbon Dioxide 19 mmol/L (22.0-30.0); Chloride 109 mmol/L (98-107); Creatinine Clearance Estimated 64 mL/min (50-200); Estimated Glomerular Filt Rate 74 ml/min (>60); GFR (African American) 89 ML/MIN (>60); Glucose 180 mg/dl (74-100); Potassium 4.2 mmoL/L (3.5-5.1); Sodium 135 mmol/L (136-145)
[2022-02-04 07:04] LABS: Hematocrit 40.4 % (42.0-52.0); Lymphocytes % 3.3 % (10-50); Mean Corpuscular HGB Conc 33.7 g/dL (31.8-35.4); Mean Corpuscular Volume 96.9 fl (80-94); Monocytes # 0.1 K/mm3 (0.1-1.0); Monocytes % 0.9 % (1.7-9.3); Neutrophils # 14.8 K/mm3 (1.8-7.8); Neutrophils % 95.7 % (37.0-80.0); Platelet Count 204 K/mm3 (142-424); Red Blood Count 4.17 M/mm3 (4.60-6.20); Red Cell Distribution Width 13.3 % (11.5-17.5); White Blood Count 15.5 K/mm3 (4.8-10.8)
[2022-02-04 07:05] LABS: Hemoglobin 13.6 g/dL (14.1-18.0)
[2022-02-04 07:06] LABS: MANUAL DIFFERENTIAL MANUAL DIFFERENTIAL (MANUAL DIFF)
--- NOTE | 2022-02-04 07:09 | P.CONPHA_ITS ---
[facility] VTE Monitoring - Patient Demographics Admission date: 02/03/22 Report Date: 02/04/22 Time: 07:09 Allergies/Adverse Reactions: Patient Allergies clopidogrel [From Plavix] Adverse Reaction (Mild, Verified 02/04/22 00:35) Vomiting ticagrelor [From Brilinta] Adverse Reaction (Mild, Verified 02/04/22 00:35) dyspnea metoprolol Adverse Reaction (Verified 02/04/22 00:35) PNEUMONIA VACCINE Allergy (Unknown, Uncoded 10/26/17 14:03) SWELLING Height: 1.75 m Weight: 67.222 kg Patient Problems: Current Active Problems Shortness of breath (Acute) Acute exacerbation of chronic obstructive airways disease (Acute) SIRS (systemic inflammatory response syndrome) (Acute) CAD (coronary artery disease) (Chronic) Tobacco use (Chronic) - VTE Risk Labs: VTE Related Lab Results Hgb 13.6 g/dL (14.1-18.0) L 02/04/22 05:53 Hct 40.4 % (42.0-52.0) L 02/04/22 05:53 Plt Count 204 K/mm3 (142-424) 02/04/22 05:53 BUN 21 mg/dl (9-20) H 02/04/22 05:53 Creatinine 1.00 mg/dl (0.66-1.25) D 02/04/22 05:53 Estimated Creat Clear 64 mL/min (50-200) 02/04/22 05:53 VTE Score: 6 VTE Risk Level: Moderate Risk - Prophylaxis VTE Prophylaxis Ordered?: Yes Types of VTE Prophylaxis: TEDS Knee High Location of Applied Device: Bilateral Lower Extremeties
--- NOTE | 2022-02-04 07:28 | HMH.PHAINT ---
MEDICATION RECONCILIATION COMPLETED ON PATIENT USING EXTERNAL FILL HISTORY FROM PHARMACY AND LIST FROM CARDIOLOGY VISIT ON 01/12/22. -JERI JOHNSOND
[2022-02-04 07:42] LABS: Lymphocytes % 5 % (10-50); Macrocytosis 1+; Monocytes % 2 % (2-9); Neutrophils % 93 % (42-76); Platelet Estimate Normal; Total Cells Counted 100
--- NOTE | 2022-02-04 08:13 | HMH.HP ---
*Admission Date: 02/03/22 <Yoko Sarabia - 02/04/22 08:36> *Chief complaint: Cough and shortness of breath <Yoko Sarabia - 02/04/22 08:36> *History of present illness: Mr. Li is a 71-year-old male patient with a history of COPD, tobacco use disorder (he smokes 2 packs/day), kidney stones, coronary artery disease, and hypertension who presented to the urgent treatment center last p.m. after experiencing progressive shortness of breath yesterday. He states he has had a cough since coronary stent placements in November 2021. So he decided to change his brand of cigarettes with the thought that this might help. He changed 2 days ago and he said his cough completely was resolved. Then the cough came back yesterday and progressively worsened and he was very short of breath. The cough has been productive at times. He has been using an inhaler at home as needed. He denies chest pain and only the shortness of breath. He states he has been eating and drinking normally for him. He has been active and even when outside walking in the cold weather with his daughter 2 days ago. He denies fever. With evaluation in the emergency room he had a CTA of the chest which showed no pulmonary embolism, bilateral pulmonary nodules and no pneumonia. Laboratory data showed elevated white blood cell count at 16,800 with some improvement this a.m. of 15,500. Renal function shows a BUN of 25 and creatinine 1.3. troponin I's have been normal x3. Liver function studies are normal. Lactate is normal at 1.3. Covid and flu test were all negative. With his symptoms and low O2 sats and blood pressure patient was transferred to the emergency room. He was noted to have a fever of 100.2. Blood pressure was low with systolic ranging in the 80s and low 90s. Zithromax and Rocephin IV were initiated. He was also given Xopenex breathing treatment as well as Solu-Medrol 125 mg IV. He was then admitted for further evaluation and treatment. This a.m. patient is feeling much better. He is able to eat breakfast. He continues with a congested cough. He denies chest pain. <Yoko Sarabia - 02/04/22 08:36> [facility] History Medical History: Reports:: Chronic Obstructive Pulmonary Disease (COPD), Coronary Artery Disease, Gastroesophageal Reflux Disease(GERD), Hyperlipidemia, Hypertension, Kidney Stones, Renal Insufficiency Denies:: Cancer, Diabetes Mellitus Type 1, Diabetes Mellitus Type 2, MRSA, Seizures <CornellYoko 02/04/22 08:36> *Have you ever received a pneumonia vaccine?: Yes <CornellYoko 02/04/22 08:36> *Have you received a flu vaccine this season?: Yes <Sarabia,Yoko 02/04/22 08:36> Other Surgeries: Yes: Cardiac Catheterization, Coronary Stent <SarabiaYoko 02/04/22 08:36> Amputation: No <SarabiaYoko - 02/04/22 08:36> Fractures: No <SarabiaYoko 02/04/22 08:36> - *Social History Smoking Status: Current every day smoker <SarabiaYoko 02/04/22 08:36> Tobacco Type: cigarettes <CornellYoko 02/04/22 08:36> # Packs/Day (cigarettes): 2 <SarabiaYoko 02/04/22 08:36> Alcohol Intake: current <SarabiaYoko 02/04/22 08:36> Alcohol Intake Frequency:: holidays/special occasions only <SarabiaYoko 02/04/22 08:36> *Occupational Status:: retired <SarabiaYoko 02/04/22 08:36> Housing: house <SarabiaYoko 02/04/22 08:36> Household Members: spouse <SarabiaYoko 02/04/22 08:36> *Travel in the last 8 weeks: None <Sarabia,Yoko - 02/04/22 08:36> Family Hx:: Cancer, Coronary Artery Disease, Diabetes <Yoko Sarabia 02/04/22 08:36> Review of Systems - Constitutional Denies headache(s) <Yoko Sarabia 02/04/22 08:36> - Eyes Denies change in vision <Yoko Sarabia 02/04/22 08:36> - ENT Reports sore throat, Denies ear pain <Yoko Sarabia 02/04/22 08:36> - *Cardiovascular Reports shortness of breath, Denies chest pain, Denies leg swelling <Yoko Sarabia - 02/04/22 08:36> - *Respiratory Reports chest congestio
--- NOTE | 2022-02-04 17:26 | PC.NURSE ---
Pt is alert and oriented x4. He's been pleasant and cooperative with care. Lungs are clear but diminished. He remains on 2L NC w/O2 sats measuring 92-94%. He's been afebrile this shift. He's used a urinal at the bedside. Denied any complaints except that he wants to go home. Family has been to visit and has been updated on poc.
[2022-02-05] VITALS: BP 108/74; PULSE 76; PULSE 81; RESP 18; TEMP 36.6; O2SAT 94
[2022-02-05 04:00] VITALS: BP 130/51; PULSE 69; PULSE 77; RESP 20; TEMP 36.5; O2SAT 94
[2022-02-05 05:00] VITALS: BMI 22.1
[2022-02-05 06:34] VITALS: PULSE 68; PULSE 69; O2SAT 96
[2022-02-05 08:00] VITALS: BP 115/73; PULSE 80; PULSE 83; RESP 16; TEMP 36.6; O2SAT 94
--- NOTE | 2022-02-05 08:21 | HMH.ACPN2 ---
<Jess Tran - Last Filed: 02/05/22 08:21> Internal Medicine - PN: Subj *Date: 02/05/22 *Time: 08:21 Interval history: Patient states he is feeling better today. His breathing is improved and he is going to try to take off his oxygen and we will check room air sats in a few minutes. He denies any pain today and slept well and is eating well. Exam Vital signs and Labs for Last 24 Hours: Temp Pulse Resp BP Pulse Ox 97.7 F 68 20 130/51 L 96 02/05/22 04:00 02/05/22 06:34 02/05/22 04:00 02/05/22 04:00 02/05/22 06:34 I & O for Last 24 hours: Intake & Output 02/02/22 02/03/22 02/04/22 02/05/22 11:59 11:59 11:59 11:59 Intake Total 1330 / 1330 915 / 915 Output Total 1200 / 1200 2401 / 2401 Balance 130 / 130 -1486 / -1486 Weight 148 lb 2.41 oz 149 lb 3 oz Microbiology Reports for the Last 24 Hours: Microbiology 02/04/22 11:16 Sputum - Expectorated Sputum Gram Stain - Final - Constitutional no acute distress - *Routine Respiratory Exam Present: CTA bilaterally - *Routine Cardiovascular Exam Present: RRR - *Routine Abdominal Exam Present: soft, normoactive bowel sounds. Absent: tenderness - *Routine Extremities Exam Absent: cyanosis, clubbing, edema - *Routine Skin Exam Present: warm. Absent: rash - *Routine Neurological Exam Present: alert, oriented X3 Assessment and Plan (1) Acute exacerbation of chronic obstructive airways disease Status: Acute Category: Medical Code(s): J44.1 - Chronic obstructive pulmonary disease with (acute) exacerbation (2) Hypotension Status: Acute Category: Medical Code(s): I95.9 - Hypotension, unspecified (3) Renal insufficiency Status: Acute Category: Medical Code(s): N28.9 - Disorder of kidney and ureter, unspecified (4) Shortness of breath Status: Acute Category: Medical Code(s): R06.02 - Shortness of breath (5) CAD (coronary artery disease) Status: Chronic Qualifiers: Coronary Disease-Associated Artery/Lesion type: [place] artery [place] vs. transplanted heart: [place] heart Associated angina: unspecified whether angina present Qualified Code(s): I25.10 - Atherosclerotic heart disease of [place] coronary artery without angina pectoris Category: Medical Code(s): I25.10 - Atherosclerotic heart disease of [place] coronary artery without angina pectoris (6) Tobacco use Status: Chronic Category: Social Hx Code(s): Z72.0 - Tobacco use - Assessment and plan all Dx Assessment and Plan for all problems:: Patient is feeling better today. Will check room air sats and may be able to discharge later on today. <Nathanael Acevedo - Last Filed: 02/05/22 13:23> Internal Medicine - PN: Subj *Date: 02/05/22 *Time: 13:22 Exam Vital signs and Labs for Last 24 Hours: Temp Pulse Resp BP Pulse Ox 97.8 F 73 19 128/76 92 L 02/05/22 12:00 02/05/22 12:00 02/05/22 12:00 02/05/22 12:00 02/05/22 12:00 I & O for Last 24 hours: Intake & Output 02/03/22 02/04/22 02/05/22 02/06/22 11:59 11:59 11:59 11:59 Intake Total 1330 / 1330 1155 / 1155 Output Total 1200 / 1200 2901 / 2901 Balance 130 / 130 -1746 / -1746 Weight 148 lb 2.41 oz 149 lb 3 oz Microbiology Reports for the Last 24 Hours: Microbiology 02/04/22 11:16 Sputum - Expectorated Sputum Gram Stain - Final Assessment and Plan (1) Acute exacerbation of chronic obstructive airways disease Status: Acute Category: Medical Code(s): J44.1 - Chronic obstructive pulmonary disease with (acute) exacerbation (2) Hypotension Status: Acute Category: Medical Code(s): I95.9 - Hypotension, unspecified (3) Renal insufficiency Status: Acute Category: Medical Code(s): N28.9 - Disorder of kidney and ureter, unspecified (4) Shortness of breath Status: Acute Category: Medical Code(s): R06.02 - Shortness of breath (5) CAD (coronary artery disease) Status: Chronic
--- NOTE | 2022-02-05 08:35 | PC.NURSE ---
O2 sat 94% on RA
--- NOTE | 2022-02-05 08:58 | PC.NURSE ---
O2 sat 92% on RA after ambulating to bathroom and around the room. Nicholas HUGHES notified. Will leave pt on RA.
[2022-02-05 12:00] VITALS: BP 128/76; PULSE 73; RESP 19; TEMP 36.6; O2SAT 92
--- NOTE | 2022-02-05 13:11 | HMH.PHAINT ---
I spoke with the patient today about his medication list. Went over the new medications that were being sent in for the patient and also reviewed the medications he was to continue at home. When we spoke, he did not have any questions or concerns. Patient was provided a copy of the medication list.
[2022-02-05 13:54] VITALS: PULSE 68; PULSE 71
--- NOTE | 2022-02-06 15:25 | HMH.DCSUM ---
General - General Admission date:: 02/04/22 <Nathanael Acevedo - 02/24/22 08:38> 02/04/22 <Jess Tran - 02/06/22 15:32> Discharge date: 02/05/22 <Jess Tran - 02/06/22 15:32> HPI HPI: Mr. Li is a 71-year-old male patient with a history of COPD, tobacco use disorder (he smokes 2 packs/day), kidney stones, coronary artery disease, and hypertension who presented to the urgent treatment center last p.m. after experiencing progressive shortness of breath yesterday. He states he has had a cough since coronary stent placements in November 2021. So he decided to change his brand of cigarettes with the thought that this might help. He changed 2 days ago and he said his cough completely was resolved. Then the cough came back yesterday and progressively worsened and he was very short of breath. The cough has been productive at times. He has been using an inhaler at home as needed. He denies chest pain and only the shortness of breath. He states he has been eating and drinking normally for him. He has been active and even when outside walking in the cold weather with his daughter 2 days ago. He denies fever. With evaluation in the emergency room he had a CTA of the chest which showed no pulmonary embolism, bilateral pulmonary nodules and no pneumonia. Laboratory data showed elevated white blood cell count at 16,800 with some improvement this a.m. of 15,500. Renal function shows a BUN of 25 and creatinine 1.3. troponin I's have been normal x3. Liver function studies are normal. Lactate is normal at 1.3. Covid and flu test were all negative. With his symptoms and low O2 sats and blood pressure patient was transferred to the emergency room. He was noted to have a fever of 100.2. Blood pressure was low with systolic ranging in the 80s and low 90s. Zithromax and Rocephin IV were initiated. He was also given Xopenex breathing treatment as well as Solu-Medrol 125 mg IV. He was then admitted for further evaluation and treatment. This a.m. patient is feeling much better. He is able to eat breakfast. He continues with a congested cough. He denies chest pain. <Jess Tran - 02/06/22 15:32> Hospital Course Hospital Course: The patient was admitted and started on duo nebs, steroids, and Zithromax and Rocephin. By 02/05/2022, he was feeling much better. His oxygen was 94% on room air at rest and 92% on room air with exertion. He denied any pain and slept well and was eating well and wanted to go home. He was stable to be discharged home on Ceftin and Zithromax. He will follow up with Dr. Acevedo. <Jess Tran - 02/06/22 15:32> Objective Vital signs: Temp Pulse Resp BP Pulse Ox 97.8 F 68 19 128/76 92 L 02/05/22 12:00 02/05/22 13:54 02/05/22 12:00 02/05/22 12:00 02/05/22 12:00 <Nathanael Acevedo - 02/24/22 08:38> Temp Pulse Resp BP Pulse Ox 97.8 F 68 19 128/76 92 L 02/05/22 12:00 02/05/22 13:54 02/05/22 12:00 02/05/22 12:00 02/05/22 12:00 <Jess Tran - 02/06/22 15:32> Narrative: - Constitutional no acute distress - *Routine Respiratory Exam Present: CTA bilaterally - *Routine Cardiovascular Exam Present: RRR - *Routine Abdominal Exam Present: soft, normoactive bowel sounds. Absent: tenderness - *Routine Extremities Exam Absent: cyanosis, clubbing, edema - *Routine Skin Exam Present: warm. Absent: rash - *Routine Neurological Exam Present: alert, oriented X3 <Jess Tran 02/06/22 15:32> Results Labs on day of discharge: Preliminary micro results at discharge 02/03/22 22:53 Blood Culture - Preliminary Blood NO GROWTH AFTER 48 HOURS 02/03/22 22:53 Blood Culture - Preliminary Blood NO GROWTH AFTER 48 HOURS <Jess Tran 02/06/22 15:32> DS: Diagnosis - Discharge Diagnosis (1) Acute exacerbation of chronic obstructive airways disease Status: Acute (2) Hypotension Status: Acute
--- NOTE | 2022-02-09 14:14 | CARE MANAGER ---
CM called and spoke with patient to discuss post discharge status. Patient states that he is feeling a little better. He was able to cook pickled meat his medications that was prescribed at discharge. Patient plans to f/u with Dr. Acevedo on 02/19 as scheduled. Patient states that he has no known needs at this time.
== END 2022-02-05 14:22 | disposition home or self-care (01) ==
LOC: UTC 19:41 → ER 21:03 → 2ND 23:02
PROVIDERS: Nurse Practitioner; Admitting Provider Family Medicine; Emergency Provider Emergency Medicine; PCP Family Medicine; Visit Provider Family Medicine
DX: J44.1 Chronic obstructive pulmonary disease with (acute) exacerbation (principal); Z20.822 Contact with and (suspected) exposure to COVID-19; Z88.8 Allergy status to other drugs, medicaments and biological substances; Z79.899 Other long term (current) drug therapy; Z79.02 Long term (current) use of antithrombotics/antiplatelets; F17.210 Nicotine dependence, cigarettes, uncomplicated; Z95.5 Presence of coronary angioplasty implant and graft; I25.10 Atherosclerotic heart disease of native coronary artery without angina pectoris; I10 Essential (primary) hypertension; K21.9 Gastro-esophageal reflux disease without esophagitis; R06.02 Shortness of breath; I95.9 Hypotension, unspecified
CPT/HCPCS: G0378; 36415; 71046; 71275; 80048; 80053; 81001; 83605; 83735; 83880; 84145; 84484; 85007; 85025; 85651; 86140; 87040; 87070; 87205; 87804; 93005; 94640; 94761; 96365; 96367; 96375; 99285; C9803; J0456; J0696; Q9967; U0003; U0005

== ENCOUNTER → 2022-06-24 10:01 | Outpatient (CLI) | payer MEDICARE, BC, SELFPAY ==
[2022-06-24 11:11] LABS: Intact Parathyroid Hormone 133.9 pg/mL (7.5-53.5)
[2022-06-24 11:17] LABS: 25-OH Vitamin D, Total 63.3 ng/mL (30-100)
[2022-06-25 17:09] LABS: Calcium, Ionized 6.2 mg/dL (4.5-5.6)
== END ==
PROVIDERS: PCP Physician Assistant; Visit Provider Physician Assistant
DX: E83.52 Hypercalcemia (principal)
CPT/HCPCS: 36415; 82306; 82330; 83970

== ENCOUNTER → 2022-10-20 14:13 | Outpatient (CLI) | payer MEDICARE, BC, SELFPAY ==
[2022-10-20 15:22] LABS: Collection Time,Urine 24 hours; Total Volume,Urine 2150 mL (250-2400)
[2022-10-20 15:49] LABS: Creatinine 24 Hour,Urine 1484 mg/24hr (630-2500)
[2022-10-20 15:51] LABS: Creatinine,Urine Random 69 mg/dL (Not Estab.)
[2022-10-22 10:06] LABS: Calcium, Urine 12.9 mg/dL (Not Estab.); Calcium, Urine 24hr 290 mg/24 hr (0-320)
== END ==
PROVIDERS: PCP Physician Assistant; Visit Provider Internal Medicine Endocrinology, Diabetes & Metabolism
DX: E21.0 Primary hyperparathyroidism (principal)
CPT/HCPCS: 82340; 82570

== ENCOUNTER → 2023-01-22 11:53 | Outpatient (CLI) | payer MEDICARE, BC, SELFPAY ==
--- NOTE | 2023-01-22 11:58 | XR_ITS ---
FINAL REPORT CLINICAL HISTORY: BRONCHITIS, soa COMPARISON: 02/03/2022 FINDINGS: TWO-VIEW CHEST The heart size is normal. The mediastinum is normal. The lungs are hyperinflated consistent with COPD. There are persistent right base opacities, may represent scar. There is partially improved lateral left upper lobe nodular opacity. There is no pneumothorax. IMPRESSION : Partially improved lateral left upper lobe of nodular opacity. Persistent right base opacities, may represent scar. Reviewed, Interpreted and Dictated by Saturnino Tate III, MD Transcribed by Yoko Benitez Authenticated and . [facility]
== END ==
PROVIDERS: PCP Physician Assistant; Visit Provider Physician Assistant
DX: J40 Bronchitis, not specified as acute or chronic (principal)
CPT/HCPCS: 71046

== ENCOUNTER → 2023-02-16 12:31 | Outpatient (CLI) | payer MEDICARE, BC, SELFPAY ==
--- NOTE | 2023-02-16 12:43 | CT_ITS ---
FINAL REPORT CLINICAL HISTORY: ABN CXR COMPARISON: Chest radiograph dated January 22, 2023 and CTA chest dated 02/03/2022 FINDINGS: Axial CT images of the chest were obtained with contrast. Coronal reformatted images were also obtained. This study was performed with techniques to keep radiation doses as low as reasonably achievable, (ALARA). Individualized dose reduction techniques using automated exposure control or adjustment of mA and/or KV according to the patient's size were employed. There is no evidence of mediastinal or hilar mass or adenopathy.No axillary mass or adenopathy is identified. On lung window images, there are moderate changes of emphysema. There is a 13 mm left upper lobe nodule which was 12 mm and is probably stable. There is a lateral right upper lobe nodule measuring 7 mm and was 7 mm. There are multiple other pulmonary nodules which are stable. There are worsening focal opacities in the right middle lobe of uncertain etiology but may be inflammatory. Limited images of the upper abdomen reveal multiple bilateral nonobstructing renal stones. IMPRESSION: Worsening right middle lobe opacities of uncertain etiology. Could be further evaluated with follow-up CT in 3-6 months. Multiple other pulmonary nodules are overall stable. These are favored to be benign but could also be further evaluated at the time of follow up CT. Multiple nonobstructing bilateral renal stones. Reviewed, Interpreted and Dictated by Saturnino Tate III, MD Transcribed by Lorna Jacob Authenticated and [facility]
== END ==
PROVIDERS: PCP Physician Assistant; Visit Provider Physician Assistant
DX: R93.89 Abnormal findings on diagnostic imaging of other specified body structures (principal)
CPT/HCPCS: 71260; Q9967

== ENCOUNTER → 2023-10-07 09:13 | Outpatient (CLI) | payer MEDICARE, BC, SELFPAY ==
--- NOTE | 2023-10-07 09:17 | XR_ITS ---
FINAL REPORT CLINICAL HISTORY: HYPERCALCEMIA COMPARISON: None FINDINGS: Using L1-4, the bone mineral density of the spine is 0.845 g/cm2, corresponding to T-score of -2.2, consistent with osteopenia. Using the left hip, the bone mineral density of the femoral neck is 0.605 g/cm2, corresponding to a T-score of -2.8, consistent with osteoporosis. Using the right hip, the bone mineral density of the femoral neck is 0.615 g/cm2, corresponding to a T-score of -2.8, consistent with osteoporosis. NOTE: T-score: Standard deviation compared with peak bone mass of young adult mean. *Following the recommendations of the International Society of Bone densitometry, classification of hip BMD is based on the lower of two T-scores; total hip or femoral neck. IMPRESSION: Diminished bone mineral density consistent with osteoporosis. Reviewed, Interpreted and Dictated by Zack Lemon MD Transcribed by Carolyn Frederick Authenticated and [facility]
--- NOTE | 2023-10-07 09:17 | CT_ITS ---
FINAL REPORT TECHNIQUE: Routine axial images were obtained from the lung apices to below the diaphragm following IV contrast administration. Individualized dose reduction techniques using automated exposure control or adjustment of the mA and/or kV according to the patient size were employed. CLINICAL HISTORY: ABNORMAL CHEST CT F/U COMPARISON: 02/16/2023, 02/03/2022 FINDINGS: No acute lung disease is present. No pleural or pericardial effusion is seen. No mass or adenopathy is identified. There are advanced changes of centrilobular emphysema. Multiple bilateral nodules are once again identified, as noted on the prior exams. There is a 1.4 x 1 cm left upper lobe nodule, that is not significantly changed since the prior CT. There are multiple subcentimeter nodules in the upper lobes bilaterally. There is a posterior right upper lobe 7 mm nodule as seen in image #36 of series 2, stable. There is a 7 mm nodular density in the right upper lobe seen on image #37 of series 2, slightly more evident than seen on the prior CT. IMPRESSION: Multiple pulmonary nodules are once again identified, the vast majority stable. There is a new 7 mm nodule in the right upper lobe as described, slightly more evident than seen on the prior CT. Would recommend 3 to 6-month follow-up chest CT to follow. Advanced changes of centrilobular emphysema. Reviewed, Interpreted and Dictated by Zack Lemon MD Transcribed by Keturah Tidwell Authenticated and [facility]
== END ==
PROVIDERS: PCP Physician Assistant; Visit Provider Physician Assistant
DX: E83.52 Hypercalcemia (principal); E34.9 Endocrine disorder, unspecified; R93.89 Abnormal findings on diagnostic imaging of other specified body structures; M81.0 Age-related osteoporosis without current pathological fracture
CPT/HCPCS: 71260; 77080; Q9967

== ENCOUNTER 2024-03-15 12:26 | Outpatient (CLI) | payer MEDICARE, BC, SELFPAY ==
[2024-03-15] MEDS: ALBUTEROL 0.083% 2.5 MG/3 ML NEB IH (13:22)
--- NOTE | 2024-03-15 13:23 | PC.NURSE ---
PFT and 6 Minute walk test completed on pt Albuterol 0.083% given via HHN, per written protocol, pt tolerated tx well.
--- NOTE | 2024-03-15 14:03 | CT_ITS ---
FINAL REPORT TECHNIQUE: Axial images were obtained from the lung apex to the mid abdomen by computed tomography. Coronal reformatted images were obtained. This study was performed with techniques to keep radiation doses as low as reasonably achievable, (ALARA). Individualized dose reduction techniques using automated exposure control or adjustment of mA and/or kV according to the patient''s size were employed. CLINICAL HISTORY: Lung nodule follow-up, march 2024 COMPARISON: 10/07/2023 FINDINGS: No mediastinal mass or adenopathy is identified. No axillary mass or adenopathy is seen.There is no pericardial or pleural effusion. No pulmonary mass or suspicious nodule is identified. There is mild emphysema and mild scarring. There are multiple bilateral pulmonary nodules again noted. The largest in the posterior lateral left upper lobe measures 14 x 10 mm and is well seen on image 19. There is a 7 mm right upper lobe nodule on image 36 which is stable. There is a 7 mm nodule in the posterior right upper lobe on image 33 which is stable. Other small nodules are also stable. There is a calcified granuloma in the right lung base. No new mass or nodule identified. The chest wall is intact. Limited images of the upper abdomen demonstrate multiple bilateral nonobstructing renal stones. IMPRESSION: Stable pulmonary nodules as above. Additional follow-up recommended in 12 months. Reviewed, Interpreted and Dictated by Saturnino Tate III, MD Transcribed by Carolyn Frederick Authenticated and [facility]
== END 2024-03-15 23:59 | disposition home or self-care (01) ==
PROVIDERS: PCP Physician Assistant; Visit Provider Internal Medicine Pulmonary Disease
DX: R06.09 Other forms of dyspnea (principal); R91.8 Other nonspecific abnormal finding of lung field
CPT/HCPCS: 71250; 94060; 94618; 94726; 94729

== ENCOUNTER 2024-04-24 10:53 | Outpatient (CLI) | payer MEDICARE, BC, SELFPAY ==
[2024-04-24 11:51] LABS: Basophils # 0.1 K/mm3 (0-0.2); Basophils % 0.7 % (0.1-2.0); Eosinophils # 0.1 K/mm3 (0.0-0.4); Eosinophils % 1.6 % (0.1-12.0); Hematocrit 43.7 % (42.0-52.0); Hemoglobin 14.4 g/dL (14.1-18.0); Lymphocytes # 1.5 K/mm3 (0.7-4.5); Lymphocytes % 20.9 % (10-50); Mean Corpuscular HGB Conc 32.9 g/dL (31.8-35.4); Mean Corpuscular Hemoglobin 32.7 pg (27.0-31.2); Mean Corpuscular Volume 99.2 fl (80-94); Mean Platelet Volume 8.2 fl (7.4-10.4); Monocytes # 0.5 K/mm3 (0.1-1.0); Neutrophils % 69.7 % (37.0-80.0); Platelet Count 199 K/mm3 (142-424); White Blood Count 7.2 K/mm3 (4.8-10.8)
[2024-04-24 12:25] LABS: Alanine Aminotransferase 17 U/L (12-78); Albumin Level 4.3 g/dl (3.5-5.0); Alkaline Phosphatase 99 U/L (38-126); Anion Gap 12.6 mEq/L (5-15); Aspartate Amino Transferase 25 U/L (17-59); Bilirubin,Indirect 0.7 mg/dL (0.0-0.9); Bilirubin,Total 0.7 mg/dl (0.2-1.3); Bilirubin,Unconjugated 0.7 mg/dL (0.0-1.1); Blood Urea Nitrogen 19 mg/dl (9-20); Calcium 10.9 mg/dl (8.4-10.2); Carbon Dioxide 23 mmol/L (22.0-30.0); Chloride 109 mmol/L (98-107); Chol/HDL Ratio 2.6 (1-3.5); Cholesterol 151 mg/dl (140-200); Estimated Glomerular Filt Rate 66 ml/min (>60); GFR (African American) 79 ML/MIN (>60); Glucose 94 mg/dl (74-100); HDL Cholesterol 59 mg/dl (40-60); Magnesium 2.2 mg/dl (1.6-2.3); Potassium 4.6 mmoL/L (3.5-5.1); Sodium 140 mmol/L (136-145); Total Protein,Serum 6.9 g/dl (6.3-8.2); Triglycerides 105 mg/dl (30-150); VLDL Cholesterol 21 mg/dL (0-40)
[2024-04-24 12:36] LABS: Direct LDL Cholesterol 63.05 mg/dL (100-129)
[2024-04-24 12:41] LABS: Free T4 (Free Thyroxine) 1.35 ng/dl (0.78-2.19)
[2024-04-24 12:56] LABS: Thyroid Stimulating Hormone 1.81 uIU/mL (0.465-4.68)
== END 2024-04-24 23:59 | disposition home or self-care (01) ==
LOC: LAB 10:54
PROVIDERS: PCP Family Medicine; Visit Provider Nurse Practitioner Family
DX: R06.09 Other forms of dyspnea (principal); N28.9 Disorder of kidney and ureter, unspecified; E78.2 Mixed hyperlipidemia; I25.10 Atherosclerotic heart disease of native coronary artery without angina pectoris; R94.31 Abnormal electrocardiogram [ECG] [EKG]; F17.210 Nicotine dependence, cigarettes, uncomplicated
CPT/HCPCS: 36415; 80048; 80061; 80076; 83735; 84439; 84443; 85025

== ENCOUNTER 2024-04-27 14:53 | Outpatient (CLI) | payer MEDICARE, BC, SELFPAY ==
--- NOTE | 2024-04-27 15:10 | CA_ITS ---
APPROVED REPORT EXAM: Comprehensive 2D, Doppler, and color-flow Echocardiogram Geriatric Care Manager: Ghazal Donovan CRT Ht: 5 ft 9 in Wt: 156lbs BSA: 1.86 BP: 134/81 mmHg Indications: Chest Pain, COPD, Shortness of Breath, CAD, Hyperlipidemia, Hypertension/HDD, Smoker 2D Dimensions LA Volume 18.80 mL LA Volume Index 9.90 mL/m2 (M/F) 16-34 M-Mode Dimensions RVDd 2.07 cm (0.9-2.6) LA Diam 2.75 cm (1.9-4.0) LVDd 3.64 cm (3.5-5.7) LVDs 2.37 cm (3.5-5.7) IVSd 1.67 cm (0.6-1.1) PWd 0.30 cm (0.6-1.1) EF (Teich) 65.10% FS 34.90% EDV (Teich) 55.90 mL TAPSE 1.57 (<1.7) ESV (Teich) 19.50 mL LV Diastology E Decel Time 253 (160-240 msec) E/A Ratio 0.70 MED A' 17.10 cm/s LAT A' 14.70 cm/s Aortic Valve AO Peak GR. 4.60 mmHg Mitral Valve MV A Velocity 69.0 (40-130 cm/s) E/A Ratio 0.70 Pulmonary Valve PV Peak Velocity 76.0 (50-150 cm/s) Tricuspid Valve TR P. Velocity 310.00 cm/s RAP Estimate 10.00 mmHg RVSP 48.50 mmHg Left Ventricle The left ventricle is normal size. The left ventricular systolic function is low normal. Proximal septal thickening is noted. The septum is asynchronous. Transmitral Doppler flow pattern suggests impaired LV relaxation. LVEF is 50%. Right Ventricle Right ventricle is mildly dilated. Right ventricle is mildly hypokinetic. Atria The left atrium size is normal. The right atrium size is normal. There is no Doppler evidence of interatrial shunt. Aortic Valve The aortic valve opens well. There is no aortic valvular stenosis. No aortic regurgitation is present. Mitral Valve The mitral valve is normal in structure. No evidence of mitral valve stenosis. There is no mitral valve regurgitation noted. Tricuspid Valve The tricuspid valve leaflets are thin and pliable. Trace tricuspid regurgitation. There is insufficient TR jet to estimate RVSP. Pulmonic Valve The pulmonary valve is normal in structure. Trace pulmonic regurgitation. Great Vessels The aortic root is normal in size. The ascending aorta is normal in size. IVC is normal in size and collapses >50% with inspiration. Pericardium There is no pericardial effusion. Other Information Study Quality: Fair Conclusion Low normal LV systolic function (LVEF 50%). Mild RV dilation with mild reduction in RV function. No significant valvular stenosis or regurgitation. Electronically signed by : Keisha Espinoza MD 05/01/2024 13:37:54
== END 2024-04-27 23:59 | disposition home or self-care (01) ==
LOC: RT 14:54
PROVIDERS: PCP Family Medicine; Visit Provider Nurse Practitioner Family
DX: R06.09 Other forms of dyspnea (principal); I25.10 Atherosclerotic heart disease of native coronary artery without angina pectoris; R94.31 Abnormal electrocardiogram [ECG] [EKG]; E78.2 Mixed hyperlipidemia; N28.9 Disorder of kidney and ureter, unspecified; F17.210 Nicotine dependence, cigarettes, uncomplicated
CPT/HCPCS: 93306

== ENCOUNTER 2024-08-23 16:28 | Emergency (ER) | payer MEDICARE, BC, SELFPAY ==
--- NOTE | 2024-08-23 16:30 | ED_ITS ---
<Statement entered by Lakshmi Lott DO - 08/23/24 23:41> I was consulted by the JANIS, and we discussed the complexity of the problems being addressed. I approved the treatment and management plan for this patient's care in the emergency department, thus performing a substantive portion of the medical decision making. Lakshmi Lott DO Discharge Plan Disposition Patient Disposition: Home, Self-Care Condition: Fair Prescriptions Prescriptions: New oxycodone 5 mg tablet 5 mg PO Q8H PRN (Reason: pain) Qty: 12 0RF ketorolac 10 mg tablet 10 mg PO Q8H PRN (Reason: pain) 3 Days Qty: 9 0RF ondansetron 4 mg tablet,disintegrating 4 mg PO Q8H PRN (Reason: nausea and vomiting) 4 Days Qty: 12 0RF tamsulosin [Flomax] 0.4 mg capsule 0.4 mg PO HS Qty: 14 0RF No Action montelukast 10 mg tablet 10 mg PO DAILY Patient Comments: TAKE ONE TABLET BY MOUTH EVERY DAY cyanocobalamin (vitamin B-12) 1,000 mcg tablet 1,000 mcg PO DAILY tamsulosin 0.4 mg capsule 0.4 mg PO DAILY aspirin 81 mg tablet,delayed release (DR/EC) 81 mg PO DAILY Qty: 30 11RF carvedilol 3.125 mg tablet 3.125 mg PO BID Qty: 60 11RF rosuvastatin 20 mg tablet 20 mg PO DAILY Qty: 30 11RF alendronate 70 mg tablet 70 mg PO WEEKLY Trelegy Ellipta 100-62.5-25 mcg blister with device 1 inh inhalation DAILY 90 Days Qty: 90 2RF albuterol sulfate 90 mcg/actuation HFA aerosol inhaler 2 inh inhalation QID PRN (Reason: shortness of breath or wheezing) 90 Days Qty: 8.5 2RF ipratropium-albuterol 0.5 mg-3 mg(2.5 mg base)/3 mL solution for nebulization 3 ml inhalation QID PRN (Reason: shortness of breath or wheezing) 90 Days Qty: 270 3RF loratadine 10 MG tablet 10 mg PO DAILY Referrals Follow up/Referrals: Dada Hopkins MD [Primary Care Provider] - See instructions Activity Restrictions/Add. Instructions Additional Instructions/Restrictions: As we discussed return to the emergency department for any worsening signs or symptoms including increasing pain fever inability to pass urine etc. We have called in a prescription to your pharmacy for pain relief however the pharmacy may not be open till tomorrow. Clinical Impressions Clinical Impression: Ureterolithiasis Instructions Patient Instructions: DI for Kidney Stones Print Language Print Language: Portuguese Discharge ED Provider: Lakshmi Lott General Adult HPI <ELLEN Hassan - Last Filed: 08/23/24 18:10> General Chief complaint: Abdominal Pain Stated complaint: back pain Time Seen by Provider: 08/23/24 16:29 History of Present Illness HPI narrative: Patient presents for evaluation of left flank pain. Patient has a known history of kidney stones and states that he is passed 2 or 3 stones over the last couple of weeks however he began having with flank pain that has now progressed to a level of 10 out of 10. It does not radiate. He denies dysuria but does endorse hematuria. He denies chest pain shortness of breath fever chills hemoptysis hematochezia melena. Related Data Home Medications ?Medication ?Instructions ?Recorded ?Confirmed tamsulosin 0.4 mg capsule 0.4 mg PO DAILY prostate 11/06/21 04/24/24 loratadine 10 mg tablet 10 mg PO DAILY Allergy symptoms 02/04/22 04/24/24 montelukast 10 mg tablet 10 mg PO DAILY 10/20/22 04/24/24 cyanocobalamin (vitamin B-12) 1,000 mcg PO DAILY 04/22/23 04/24/24 1,000 mcg tablet alendronate 70 mg tablet 70 mg PO WEEKLY 01/07/24 04/24/24 Previous Rx's ?Medication ?Instructions ?Recorded albuterol sulfate 90 mcg/actuation 2 inh inhalation QID PRN shortness 03/21/24 aerosol inhaler of breath or wheezing 90 days #8.5 grams fluticasone fur. 100 mcg-umeclid 1 inh inhalation DAILY 90 days #90 03/21/24 62.5 mcg-vilant 25 mcg ea inhalat.powder (Trelegy Ellipta) ipratropium 0.5 mg-albuterol 3 mg 3 ml inhalation QID PRN shortness 03/21/24 (2.5 mg base)/3 mL nebulization of breath or wheezing 90 days #270 soln mL aspirin 81 mg tablet,delayed 81 mg PO DAILY [facility] #30 04/24/24 release tabs carvedilol 3.125 mg tablet 3.125 mg PO BID #60 tabs 04/24/24 rosuvastatin 20 mg tablet 20 mg PO DAILY #30 tabs 04/24/24 ketorolac 10 mg tablet 10 mg PO Q8H PRN pain 3 days #9 08/23/24 tabs ondansetron 4 mg disintegrating 4 mg PO Q8H PRN nausea and 08/23/24 tablet vomiting 4 days #12 tabs oxycodone 5 mg tablet 5 mg PO Q8H PRN pain #12 tabs 08/23/24 tamsulosin 0.4 mg capsule (Flomax) 0.4 mg PO HS #14 caps 08/23/24 Allergies Allergy/AdvReac Type Severity Reaction Status Date / Time clopidogrel [From Plavix] AdvReac Mild Vomiting Verified 04/24/24 10:24 ticagrelor [From Brilinta] AdvReac Mild dyspnea Verified 04/24/24 10:24 metoprolol AdvReac Verified 04/24/24 10:24 PNEUMONIA VACCINE Allergy Unknown SWELLING Uncoded 04/24/24 10:24 PFS <ELLEN Hassan - Last Filed: 08/23/24 18:10> [facility] Disclaimer: The information contained in this section may have been updated after the patient was seen, as this information can be updated by other users. Medical History COPD mixed type Multiple lung nodules on CT Dyspnea on exertion Smoking greater than 30 pack years Pulmonary emphysema Dyspnea Angina pectoris CAD (coronary artery disease) Surgical History History of heart artery stent Family History Other COPD (chronic obstructive pulmonary disease) Diabetes Stroke Social History Smoking Status: Former smoker tobacco type: cigarettes packs per day: 2 second hand exposure: No alcohol intake: current alcohol intake frequency: holidays/special occasions only current occupational status: retired Travel in the last 8 weeks: None household members: spouse housing: house current occupational exposures/hazards: No caffeine: Yes Other Medical History Have you received the Flu Vaccine for this season: No Have you received the Pneumonia Vaccine: Yes <ELLEN Hassan - Last Filed: 08/23/24 18:10> ROS Obtained: Yes Systems reviewed as appropriate & no additional complaints except as documented Physical Exam <ELLEN Hassan - Last Filed: 08/23/24 18:10> General General appearance: alert and in no apparent distress Respiratory Respiratory exam: Present normal lung sounds bilaterally Cardiovascular Cardiovascular exam: Present regular rate Neurological Exam Neurological exam: Present alert and oriented X3 Medical Decision Making <ELLEN Hassan - Last Filed: 08/23/24 18:10> Medical Records Medical records reviewed: Yes I reviewed the patient's medical records. Screening: Per USPSTF and CDC recommendations, given the prevalence of disease in our region, it is our hospital?s policy to screen for HIV and viral Hepatitis for all patients aged 18 and over and those with ongoing risk factors. Kyree Inquiry Pt receiving controlled substance: No Vital Signs: 08/23/24 16:39 08/23/24 17:00 08/23/24 17:30 Temperature 97.9 F Temperature Source Oral Pulse Rate 74 77 Pulse Rate [Right Brachial] 94 H Respiratory Rate 16 Blood Pressure 147/83 H 127/82 Blood Pressure [Right Arm] 160/99 H Blood Pressure Mean 108 97 Blood Pressure Mean [Right Arm] 119 Blood Pressure Source [Right Arm] Automatic Cuff Blood Pressure Position [Right Arm] Sitting 02 Sat by Pulse Oximetry 97 98 95 Oxygen Delivery Method Room Air Room Air Room Air 08/23/24 18:00 08/23/24 18:21 Temperature 98.0 F Temperature Source Pulse Rate 68 69 Pulse Rate [Right Brachial] Respiratory Rate 16 Blood Pressure 129/71 129/71 Blood Pressure [Right Arm] Blood Pressure Mean 89 Blood Pressure Mean [Right Arm] Blood Pressure Source [Right Arm] Blood Pressure Position [Right Arm] 02 Sat by Pulse Oximetry 91 L Oxygen Delivery Method Room Air Lab Data Lab results reviewed: Yes I reviewed the patient's lab results. Lab Results 08/23/24 14:50: WBC 7.2, RBC 4.29 L, Hgb 14.4, Hct 40.9 L, MCV 95.2 H, MCH 33.6 H, MCHC 35.3, RDW 14.0, Plt Count 197, MPV 8.3, Neut % (Auto) 61.6, Lymph % (Auto) 28.6, Kemper % (Auto) 6.2, Eos % (Auto) 2.8, Baso % (Auto) 0.8, Neut # (Auto) 4.5, Lymph # (Auto) 2.1, Kemper # (Auto) 0.5, Eos # (Auto) 0.2, Baso # (Auto) 0.1, Sodium 135 L, Potassium 4.1, Chloride 109 H, Carbon Dioxide 25, Anion Gap 5.1, BUN 26 H, Creatinine 1.30 H, Estimated Creat Clear 54, Estimated GFR 54 L, Est GFR ( Amer) 65, Glucose 98, Calcium 11.0 H, Total Bilirubin 0.7, AST 31, ALT 20, Alkaline Phosphatase 82, Total Protein 7.3, Albumin 4.2, Globulin 3.1, Albumin/Globulin Ratio 1.4, HIV 1&2 Antibody Rapid Nonreactive 08/23/24 14:50 08/23/24 14:50 Orders (Tests/Meds): ED MEDICATIONS Discontinued Medications Generic Name Dose Route Start Last Admin Trade Name Freq PRN Reason Stop Dose Admin Acetaminophen 1,000 mg 08/23/24 16:38 08/23/24 16:52 Acetaminophen 500mg Tab PO 08/23/24 16:39 1,000 mg ONCE ONE Administration Hydromorphone HCl 0.5 mg 08/23/24 16:54 08/23/24 17:05 Hydromorphone 2mg/Ml Syringe IV 08/23/24 16:55 0.5 mg ONCE ONE Administration Ketorolac Tromethamine 15 mg 08/23/24 16:38 08/23/24 16:52 Ketorolac 30mg/Ml Vial IV 08/23/24 16:39 15 mg ONCE ONE Administration Ondansetron HCl 4 mg 08/23/24 16:38 08/23/24 16:52 Ondansetron 4mg/2ml Vial IV 08/23/24 16:39 4 mg ONCE ONE Administration ORDERS Category Date Time Status CT abdomen pelvis wo con Stat Cat Scan 08/23/24 16:31 Completed CBC w/Auto Diff [Complete Blood Count Auto Diff] Stat Lab 08/23/24 14:50 Completed CMP [Comprehensive Metabolic Panel] Stat Lab 08/23/24 14:50 Completed HIV (1&2) Antibody Rapid Stat Lab 08/23/24 14:50 Completed Hep C Ab with Reflex to RNA Stat Lab 08/23/24 14:50 Received Medical Decision Narrative: In summary patient is a 73-year-old male who presents to the emergency department for evaluation of left flank pain. Patient is hemodynamically stable upon arrival, febrile. Physical exam is remarkable for CVA tenderness to percussion on the left negative on the right with no abdominal tenderness. Bowel sounds normal active. Differential diagnosis includes UTI versus stone versus pyelonephritis. Initial workup will be conducted with hematologic labs urinalysis CT scan stone protocol. Initial interventions include Toradol Tylenol Dilaudid. Initial workup reviewed by me shows numerous nonobstructing stones in the bilateral kidneys with an obstructing stone in the mid left ureter with hydronephrosis prior to radiology read. Upon repeat evaluation patient reported significant improvement after initial intervention. Given this given this I had interactive discussion with the patient regarding his findings and via patient directed discharge he is going to try to pass it at home but will return for any worsening signs or symptoms to the emergency department or go directly to Dr. Mayen's office during business hours. <Lakshmi Lott, DO - Last Filed: 08/23/24 23:41> Kyree Inquiry Pt receiving controlled substance: Yes Kyree was queried for this patient: Yes Risks and benefits of using a controlled substance: were discussed with pt by me Vital Signs: 08/23/24 16:39 08/23/24 17:00 08/23/24 17:30 Temperature 97.9 F Temperature Source Oral Pulse Rate 74 77 Pulse Rate [Right Brachial] 94 H Respiratory Rate 16 Blood Pressure 147/83 H 127/82 Blood Pressure [Right Arm] 160/99 H Blood Pressure Mean 108 97 Blood Pressure Mean [Right Arm] 119 Blood Pressure Source [Right Arm] Automatic Cuff Blood Pressure Position [Right Arm] Sitting 02 Sat by Pulse Oximetry 97 98 95 Oxygen Delivery Method Room Air Room Air Room Air 08/23/24 18:00 08/23/24 18:21 Temperature 98.0 F Temperature Source Pulse Rate 68 69 Pulse Rate [Right Brachial] Respiratory Rate 16 Blood Pressure 129/71 129/71 Blood Pressure [Right Arm] Blood Pressure Mean 89 Blood Pressure Mean [Right Arm] Blood Pressure Source [Right Arm] Blood Pressure Position [Right Arm] 02 Sat by Pulse Oximetry 91 L Oxygen Delivery Method Room Air Lab Data Lab Results 08/23/24 14:50: WBC 7.2, RBC 4.29 L, Hgb 14.4, Hct 40.9 L, MCV 95.2 H, MCH 33.6 H, MCHC 35.3, RDW 14.0, Plt Count 197, MPV 8.3, Neut % (Auto) 61.6, Lymph % (Auto) 28.6, Kemper % (Auto) 6.2, Eos % (Auto) 2.8, Baso % (Auto) 0.8, Neut # (Auto) 4.5, Lymph # (Auto) 2.1, Kemper # (Auto) 0.5, Eos # (Auto) 0.2, Baso # (Auto) 0.1, Sodium 135 L, Potassium 4.1, Chloride 109 H, Carbon Dioxide 25, Anion Gap 5.1, BUN 26 H, Creatinine 1.30 H, Estimated Creat Clear 54, Estimated GFR 54 L, Est GFR ( Amer) 65, Glucose 98, Calcium 11.0 H, Total Bilirubin 0.7, AST 31, ALT 20, Alkaline Phosphatase 82, Total Protein 7.3, Albumin 4.2, Globulin 3.1, Albumin/Globulin Ratio 1.4, HIV 1&2 Antibody Rapid Nonreactive Orders (Tests/Meds): ED MEDICATIONS Discontinued Medications Generic Name Dose Route Start Last Admin Trade Name Freq PRN Reason Stop Dose Admin Acetaminophen 1,000 mg 08/23/24 16:38 08/23/24 16:52 Acetaminophen 500mg Tab PO 08/23/24 16:39 1,000 mg ONCE ONE Administration Hydromorphone HCl 0.5 mg 08/23/24 16:54 08/23/24 17:05 Hydromorphone 2mg/Ml Syringe IV 08/23/24 16:55 0.5 mg ONCE ONE Administration Ketorolac Tromethamine 15 mg 08/23/24 16:38 08/23/24 16:52 Ketorolac 30mg/Ml Vial IV 08/23/24 16:39 15 mg ONCE ONE Administration Ondansetron HCl 4 mg 08/23/24 16:38 08/23/24 16:52 Ondansetron 4mg/2ml Vial IV 08/23/24 16:39 4 mg ONCE ONE Administration ORDERS Category Date Time Status CT abdomen pelvis wo con Stat Cat Scan 08/23/24 16:31 Completed CBC w/Auto Diff [Complete Blood Count Auto Diff] Stat Lab 08/23/24 14:50 Completed CMP [Comprehensive Metabolic Panel] Stat Lab 08/23/24 14:50 Completed HIV (1&2) Antibody Rapid Stat Lab 08/23/24 14:50 Completed Hep C Ab with Reflex to RNA Stat Lab 08/23/24 14:50 Received Critical Care <ELLEN Hassan - Last Filed: 08/23/24 18:10> Critical Care Time Critical Care Time: No
--- NOTE | 2024-08-23 16:31 | CT_ITS ---
PROCEDURE INFORMATION: Exam: CT Abdomen And Pelvis Without Contrast Exam date and time: 08/23/2024 4:45 PM Age: 73 years old Clinical indication: Abdominal pain; Additional info: Flank pain TECHNIQUE: Imaging protocol: Computed tomography of the abdomen and pelvis without contrast. Radiation optimization: All CT scans at this facility use at least one of these dose optimization techniques: automated exposure control; mA and/or kV adjustment per patient size (includes targeted exams where dose is matched to clinical indication); or iterative reconstruction. COMPARISON: 1. CT ABDOMEN PELVIS WO CON 11/03/2021 3:[address] CHEST WO CON 03/15/2024 2:[address] CHEST W CON 10/07/2023 10:04 AM FINDINGS: Lungs: There are scattered areas of emphysema throughout the lungs. Scattered areas of bronchial wall thickening which are likely chronic inflammatory. A few areas of subpleural reticulation are noted, nonspecific. Liver: Normal. Gallbladder and biliary ducts: There is cholelithiasis within an otherwise normal gallbladder. Pancreas: Normal. Spleen: Normal. Adrenal glands: The adrenal glands appear normal. Kidneys and ureters: There is moderate left hydroureteronephrosis extending to a 5 mm calculus in the distal ureter (image 84 series 3). There are nonobstructing bilateral intrarenal calculi. Stomach and bowel: There is large volume stool throughout the colon. Appendix: No evidence of appendicitis. Intraperitoneal space: Unremarkable. Vasculature: There is atherosclerotic disease of the visualized aorta and its major branch vessels. Lymph nodes: No lymphadenopathy. Urinary bladder: There is a 5 mm calculus in the dependent urinary bladder. Reproductive: The prostate is enlarged. Bones/joints: There is diffuse degenerative disease of the visualized osseous structures. Soft tissues: There is a fat containing left inguinal hernia. IMPRESSION: 1. There is moderate left hydroureteronephrosis extending to a 5 mm calculus in the distal ureter (image 84 series 3). 2. There is a 5 mm calculus in the dependent urinary bladder.
[2024-08-23 16:39] VITALS: BP 160/99; PULSE 94; RESP 16; TEMP 36.6; O2SAT 97; BMI 24.6
[2024-08-23] MEDS: ACETAMINOPHEN 500MG TAB 1000 MG PO (16:52)
[2024-08-23] MEDS: KETOROLAC 30MG/ML VIAL 15 MG IV (16:52)
[2024-08-23] MEDS: ONDANSETRON 4MG/2ML VIAL 4 MG IV (16:52)
[2024-08-23 17:00] VITALS: BP 147/83; PULSE 74; O2SAT 98
[2024-08-23] MEDS: HYDROMORPHONE 2MG/ML SYRINGE 0.5 MG IV (17:05)
[2024-08-23 17:28] LABS: Alanine Aminotransferase 20 U/L (12-78); Albumin Level 4.2 g/dl (3.5-5.0); Albumin/Globulin Ratio 1.4 (1.1-1.8); Alkaline Phosphatase 82 U/L (38-126); Anion Gap 5.1 mEq/L (5-15); Aspartate Amino Transferase 31 U/L (17-59); Bilirubin,Total 0.7 mg/dl (0.2-1.3); Blood Urea Nitrogen 26 mg/dl (9-20); Carbon Dioxide 25 mmol/L (22.0-30.0); Chloride 109 mmol/L (98-107); Creatinine Clearance Estimated 54 mL/min (50-200); Estimated Glomerular Filt Rate 54 ml/min (>60); GFR (African American) 65 ML/MIN (>60); Globulin 3.1 g/dL (1.3-3.2); Glucose 98 mg/dl (74-100); Potassium 4.1 mmoL/L (3.5-5.1); Sodium 135 mmol/L (136-145); Total Protein,Serum 7.3 g/dl (6.3-8.2)
[2024-08-23 17:30] VITALS: BP 127/82; PULSE 77; O2SAT 95
[2024-08-23 17:45] LABS: Basophils # 0.1 K/mm3 (0-0.2); Basophils % 0.8 % (0.1-2.0); Eosinophils # 0.2 K/mm3 (0.0-0.4); Eosinophils % 2.8 % (0.1-12.0); Hematocrit 40.9 % (42.0-52.0); Hemoglobin 14.4 g/dL (14.1-18.0); Lymphocytes # 2.1 K/mm3 (0.7-4.5); Lymphocytes % 28.6 % (10-50); Mean Corpuscular HGB Conc 35.3 g/dL (31.8-35.4); Mean Corpuscular Hemoglobin 33.6 pg (27.0-31.2); Mean Corpuscular Volume 95.2 fl (80-94); Mean Platelet Volume 8.3 fl (7.4-10.4); Monocytes # 0.5 K/mm3 (0.1-1.0); Monocytes % 6.2 % (1.7-9.3); Neutrophils # 4.5 K/mm3 (1.8-7.8); Neutrophils % 61.6 % (37.0-80.0); Platelet Count 197 K/mm3 (142-424); Red Blood Count 4.29 M/mm3 (4.60-6.20); White Blood Count 7.2 K/mm3 (4.8-10.8)
[2024-08-23 18:00] VITALS: BP 129/71; PULSE 68; O2SAT 91
[2024-08-23 18:13] LABS: HIV (1&2) Antibody Rapid NONREACTIVE (NONREACTIVE)
[2024-08-23 18:21] VITALS: BP 129/71; PULSE 69; RESP 16; TEMP 36.7
[2024-08-25 08:28] LABS: HCV Ab Non Reactive (Non Reactive)
== END 2024-08-23 18:22 | disposition home or self-care (01) ==
PROVIDERS: Physician Assistant; Emergency Provider Emergency Medicine; PCP Family Medicine
DX: N20.1 Calculus of ureter (principal); R10.32 Left lower quadrant pain
CPT/HCPCS: 74176; 80053; 85025; 86803; 87389; 96374; 96375; 99284; J1171; J1885; J2405

== ENCOUNTER 2025-03-13 12:36 | Outpatient (CLI) | payer MEDICARE, BC, SELFPAY ==
--- OUTSIDE RECORDS SUMMARY | 2025-03-13 12:39 | XMS_ITS | Data Portability ---
Author Organization [facility] [place] [facility]OS[facility] Address [address] [facility] [address] [place] [address] Care Team Providers Care Wireless Internet Installer Name Role Phone ARTHUR EVANS Referring Provider NANCY ZAFAR Referring Provider Assessment No assessment recorded. Plan of Treatment Reminders Order Date Submit Date Provider Last Modified By Organization Details Last Modified Time Details Appointments None recorded. Lab PTH (parathyro id hormone), intact + calcium, serum or plasma 2021 [facility], [address] [place] [address], [id number], 16:40:49 vitamin D, 25-hydroxy , total, serum 2021 [facility], [address] [place] [address], [id number], 16:51:22 magnesium, QN, serum or plasma 2021 [facility], [address] [place] [address], [phone], 2 16:09:19 renal function panel, serum 2021 [facility], [address] [place] [address], [id number], 16:09:20 calcium, 24-hour urine [address] [facility], [address] [place] [address], [id number], 3 07:38:20 creatinine , 24-hour urine [address] [facility], [address] [place] [address], [phone], 3 07:38:20 sodium, 24-hour urine [address] [facility], [address] [place] [address], [id number], 3 07:38:20 Referral None recorded. Procedures None recorded. Surgeries None recorded. Imaging DEXA [address] Bone Density [facility], [address] [place] [address], [id number], 17:24:11 Medication Orders None recorded. Patient TargetsNo targets recorded. Patient InstructionsNo instructions recorded. Reason for Referral None Reported. Results Created Date Observation Date Name Description Value Unit Range Abnormal Flag Note LastModifiedBy Organization Detail LastModifiedTime 10/14/2010/14/2022 MAGNE SIUM magnesium 2.1 mg/dL 1.6-2. 6 normal Not Available [facility] [address] [place] [address], [phone], 10/14/2022 16:09:19 10/14/20 22 10/14/2022 RENAL FUNCT ION PANEL glucose 98 mg/dL 74-100 normal Not Available [facility] [address] [place] [address], [phone], 10/14/2022 16:09:20 10/14/20 22 10/14/2022 RENAL FUNCT ION PANEL blood urea nitrogen 21 mg/dL 6-20 high Not Available [facility] [address] [place] [address], [id number], 10/14/2022 16:09:20 10/14/20 22 10/14/2022 RENAL FUNCT ION PANEL creatinine 0.95 mg/dL 0.70-1 .28 normal Not Available [facility] [address] [place] [address], [id number], 10/14/2022 16:09:20 10/14/20 22 10/14/2022 RENAL FUNCT ION PANEL BUN/creatini ne ratio 22 (calc ) 10-20 high Not Available [facility] [address] [place] [address], [phone], 10/14/2022 16:09:20 10/14/20 22 10/14/2022 RENAL FUNCT ION PANEL sodium 138 mmol/ L 136-14 5 normal Not Available [facility] [address] [place] [address], [address], 10/14/2022 16:09:20 10/14/20 22 10/14/2022 RENAL FUNCT ION PANEL potassium 4.3 mmol/ L 3.4-5. 0 normal Not Available [facility] [address] [place] [address], [address], 10/14/2022 16:09:20 10/14/20 22 10/14/2022 RENAL FUNCT ION PANEL chloride 103 mmol/ L 98-107 normal Not Available [facility] [address] [place] [address], [id number], 10/14/2022 16:09:20 10/14/20 22 10/14/2022 RENAL FUNCT ION PANEL carbon dioxide 25 mmol/ L 22-31 normal Not Available [facility] [address] [place] [address], [phone], 10/14/2022 16:09:20 10/14/20 22 10/14/2022 RENAL FUNCT ION PANEL anion gap 10 (calc ) 7-25 normal Not Available [facility] [address] [place] [address], [id number], 10/14/2022 16:09:20 10/14/20 22 10/14/2022 RENAL FUNCT ION PANEL calcium 11.3 mg/dL 8.6-10 .2 high Not Available [facility] [address] [place], [address], 10/14/2022 16:09:20 10/14/20 22 10/14/2022 RENAL FUNCT ION PANEL phosphorus 2.5 mg/dL 2.5-4. 5 normal Not Available [facility] [address] [place], [address], 10/14/2022 16:09:20 10/14/20 22 10/14/2022 RENAL FUNCT ION PANEL albumin 4.6 g/dL 3.5-5. 2 normal Not Available [facility] [address] [place], [address], 10/14/2022 16:09:20 10/14/20 22 10/14/2022 RENAL FUNCT ION PANEL GFR 85 >= 60 normal NOT E New calcu latio n for GFR (CKD- EPI 2020) is formu lated witho ut race adjus tment facto rs at the [facility] menda tion of the Jennifer horta and [facility] ty of Nephr ology . This calcu latio n has not been valid ated in pregn ant women . For pedia tric patie nts refer to https ://silvia hardy.lorraine rg/payton castanonal s/KDO QI/gf r_cal culat orPed Not Available [facility] [address] [place], [address], 10/14/2022 16:09:20 10/14/20 22 10/14/2022 PTH, INTAC T WITH CA PTH, intact 108.0 pg/mL 15.0-6 5.0 high INTER PRETI VE GUIDE ===== ===== ===== ===== ===== ===== ===== ===== ===== ===== ===== === PTH CALCI UM CONDI TION ===== ===== ===== ===== ===== ===== ===== ===== ===== ===== ===== = Ellen l Ellen l Ellen l Parat hyroi d _ Low or Low Hypop stephon yroid ism Low Ellen l _ Ellen l or High Prima ry Hyper parat hyroi dism High __ High Ellen l or Secon ella Hyper parat hyroi dism Low __ High High Terti bina Hyper parat hyroi dism __ Low or High Non-P stephon yroid Hyper calce johnny Low Ellen l ===== ===== ===== ===== ===== ===== ===== ===== ===== ===== ===== ==== Not Available [facility] [address] [place], [address], 10/14/2022 16:51:23 10/14/20 22 10/14/2022 PTH, INTAC T WITH CA calcium 11.2 mg/dL 8.6-10 .2 high Not Available [facility] [address] [place], [address], 10/14/2022 16:51:23 10/14/20 22 10/14/2022 VITAM IN D 25-OH vitamin D 25-oh, total 37 NG/mL >=30 NG/mL normal Not Available [facility] [address] [place], [address], 10/14/2022 16:51:22 10/14/20 23 10/07/2023 DEXA No observ ation record ed. [email or web address] Not Available 2022 15:51:42 Result Notes None recorded. Procedures Surgical History Date Name Laterality Status Provider Name and Address Organization Details Recorded Time cardiac catheterization completed [facility] 10/14/2022 14:35:51 Imaging Results Imaging Date Name Status LastModified by Organizatio n Details LastModified Time 10/07/2023 DEXA completed [email or web address] Information no t available 10/14/2023 15:51:42 Procedure Notes None recorded. Medical Equipment None Reported. Allergies No known drug allergies Medications Name Sig Start Date Stop Date Status Note LastModified by Organization Details LastModified Time cyclobenzap rine 10 mg tablet TAKE ONE TABLET BY MOUTH THREE TIMES DAILY NEEDED MAY CAUSE DROWSINES S 10/14 completed Not Available Not Available Not Available nystatin 100,000 unit/mL oral suspension SWISH 5 ML BY MOUTH AND EXPECTORA TE FOUR TIMES DAILY 10/14 completed Not Available Not Available Not Available azithromyci n 250 mg tablet TAKE ONE TABLET BY MOUTH EVERY DAY FOR 3 DAYS -- FINISH ALL MEDICINE -- 10/14 completed Not Available Not Available Not Available hydrocodone 5 mg-acetamin ophen 325 mg tablet TAKE ONE TABLET BY MOUTH EVERY 6 HOURS NEEDED 10/14 completed Not Available Not Available Not Available ondansetron HCl 4 mg tablet TAKE 1 TABLET BY MOUTH EVERY 8 HOURS NEEDED FOR NAUSEA OR VOMITING 10/14 completed Not Available Not Available Not Available famotidine 40 mg tablet TAKE 1 TABLET BY MOUTH EVERY DAY AT BEDTIME 10/14 completed Not Available Not Available Not Available clopidogrel 75 mg tablet TAKE ONE TABLET BY MOUTH EVERY DAY 10/14 completed Not Available Not Available Not Available ciprofloxac in 500 mg tablet TAKE 1 TABLET BY MOUTH EVERY 12 HOURS 10/14 completed Not Available Not Available Not Available carvedilol 3.125 mg tablet Take 1 tablet twice a day by oral route with meals. active Not Available Not Available No t Available bisoprolol fumarate 5 mg tablet TAKE 1 TABLET BY MOUTH EVERY DAY 10/14 completed Not Available Not Available Not Available tamsulosin 0.4 mg capsule Take 1 capsule every day by oral route. active Not Available Not Available No t Available dexamethaso ne 4 mg tablet TAKE 1/2 TABLET BY MOUTH TWICE DAILY FOR 7 DAYS -- FINISH ALL MEDICINE -- 10/14 completed Not Available Not Available Not Available montelukast 10 mg tablet Take 1 tablet every day by oral route. active Not Available Not Available No t Available metoprolol succinate ER 25 mg tablet,exte nded release 24 hr TAKE 1 TABLET BY MOUTH DAILY 10/14 completed Not Available Not Available Not Available cefuroxime axetil 500 mg tablet TAKE ONE TABLET BY MOUTH TWICE DAILY FOR 7 DAYS -- FINISH ALL MEDICINE -- 10/14 completed Not Available Not Available Not Available methylpredn isolone 4 mg tablets in a dose pack TAKE ACCORDING TO PACKAGE INSTRUCTI ONS --TAKE WITH FOOD-- -- FINISH ALL MEDICINE -- 10/14 completed Not Available Not Available Not Available albuterol sulfate HFA 90 mcg/actuati on aerosol inhaler INHALE TWO PUFFS BY MOUTH EVERY 6 HOURS NEEDED 10/14 completed Not Available Not Available Not Available loratadine 10 mg tablet TAKE ONE TABLET BY MOUTH EVERY DAY active Not Available Not Available No t Available rosuvastati n 20 mg tablet Take 1 tablet every day by oral route. active Not Available Not Available No t Available prasugrel HCl 10 mg tablet TAKE ONE TABLET BY MOUTH EVERY DAY 10/14 completed Not Available Not Available Not Available Brilinta 90 mg tablet TAKE ONE TABLET BY MOUTH TWICE DAILY 10/14 completed Not Available Not Available Not Available Breo Ellipta 100 mcg-25 mcg/dose powder for inhalation INHALE 1 PUFF BY MOUTH EVERY DAY DIRECTED --RINSE MOUTH AFTER USE-- 10/14 completed Not Available Not Available Not Available Allergy Relief (fluticason e) 50 mcg/actuati on nasal spray,suspe nsion [place] 1 spray every day by intranasa l route. active Not Available Not Available No t Available fluticasone fur. 100 mcg-umeclid 62.5 mcg-vilant 25 mcg inhalat.pow ajit Inhale 1 puff every day by inhalatio n route. active Not Available Not Available No t Available Vitals Date Recorded Body weight Heart rate Systolic blood pressure Diastolic blood pressure Provider Name and Address Organization Details Last Updated DateTime 10/14/2022 37726 g 68 /min 127 mm[Hg] 70 mm[Hg] [facility] 10/14/2022 14:28:02 Social History None recorded. Functional Status None recorded. Mental Status None recorded. Family History Nothing Reported. Medical History Condition Response Chest Pain Y Past Encounters Encounter ID Performer Location Encounter Start Date Encounter Closed Date Diagnosis/Indication Diagnosis SNOMED-CT Code Diagnosis ICD10 Code Diagnosis Note [id number] SWAPNA BEAR DO [facility] [address] [place] [address] 10/14/2022 14:07:45 10/14/2022 15:00:12 Primary hyperparathyroidism 84931194 E21.0 ? Serum calcium 10.8, PTH 133? Patient has a history of recurrent renal stones? Reviewed with patient the basic physiology of primary hyperparat hyroidism? Discussed with patient definitive treatment is a parathyroi dectomy, he is not amenable. We can consider adding Sensipar however this treatment may not event worsening decline of his BMD? Today we will repeat parathyroi d labs, check 24-hour urine and plan on doing a bone density scan? Tentative follow-up in 6 months Health Concerns Section Related Observation LastModified by Organization Detai ls LastModified Time None Recorded Concern Status LastModified by Organization Details LastModified Time None Recorded Advance Directives Directive None Recorded Payers Encounter Date Sequence Insurance Name Policy Number Policy Town[place] Covered Member ID Townsend Member ID Guarantor Name 10/14/2022 1 [place]ARE[place] Juni Li [id number] Juni Li 10/14/2022 2 [place] [id number] Juni Li [id number] Juni Li Notes Date Note Type Note Provider Name and Address Organization Details Recorded Time 10/14/2022 text/html This is a 71-year-old male with a past medical history significant for hypertension, COPD, hyperlipidemia and BPH who presented to the clinic for evaluation and management of his hypercalcemia at the request of Arthur HUGHES.Hypercalcemia was found incidentally on routine lab work in May with PTH of 133. The patient does report a longstanding history of recurrent renal stones, some requiring surgical intervention. He denies any fragility fractures. He has not had a bone density scan completed. He is not taking any thiazide diuretics or lithium. He reports no known family history of calcium disorders. The patient denies any headaches, brain fog, palpitations, nausea, abdominal pain, constipation. He does report polyuria but does have underlying BPH and is currently on tamsulosin. SWAPNA BEAR DO [address] [place], [address], [facility] 10/14/2022 16:50:15
--- OUTSIDE RECORDS SUMMARY | 2025-03-13 12:39 | XMS_ITS ---
Author Organization Unknown Medications Date Medication Dosage DosageUnit StartDate StopDate StopReason Active DoseQuantity DoseUnit Dispense DispenseUnit Refills NdcCode DrugCode PharmacyId IsPrescription MappedMedication Srcstatus 01/08 00:00 :00 Alendronate Sodium 70 mg Tablet 1 4 Tablet 5 649 66192 214 Taking 10/04 00:00 :00 Alendronate Sodium 70 mg Tablet 1 4 Tablet 5 649 09733 214 Start 01/08 00:00 :00 Aspirin 81 MG Tablet Delayed Release 1 61762002 474 Continue 01/08 00:00 :00 Aspirin 81 MG Tablet Delayed Release 1 30 02201876 474 Taking 01/08 00:00 :00 Benzonatate 200 MG Capsule 12/08/2023 00:00:00 1 1466710 3 205 P Continue 01/08 00:00 :00 Benzonatate 200 MG Capsule 12/08/2023 00:00:00 1 30 1 6296775 3 205 P Taking 01/08 00:00 :00 Bisoprolol Fumarate 5 MG Tablet 1 1671 4052 901 Continue 01/08 00:00 :00 Bisoprolol Fumarate 5 MG Tablet 1 1671 4052 901 Taking 10/04 00:00 :00 Fosamax 70 MG Tablet 0 4 11 70599539 501 Stop 01/08 00:00 :00 hydroCHLORO thiazide 12.5 MG Tablet 01/08/2025 00:00:00 1 30 5 4160963 2 011 P Start 01/08 00:00 :00 Levalbutero l Tartrate 45 MCG/ACT Aerosol 1 75070744 754 Continue 01/08 00:00 :00 Levalbutero l Tartrate 45 MCG/ACT Aerosol 1 15 Gram 0 02705456 754 Taking 12/02 00:00 :00 Levalbutero l Tartrate 45 MCG/ACT Aerosol 1 15 Gram 0 25121700 754 Start 01/08 00:00 :00 Loratadine 10 MG Tablet 1 340602 67 430 Continue 01/08 00:00 :00 Loratadine 10 MG Tablet 1 30 Tablet 5 0 9450040 430 Taking 10/04 00:00 :00 Loratadine 10 MG Tablet 1 30 Tablet 5 0 3921749 430 Start 10/04 00:00 :00 Loratadine 10 MG Tablet 0 30 Tablet 5 0 3365001 430 Stop 04/05 00:00 :00 Loratadine 10 MG Tablet 1 30 Tablet 5 0 1291711 430 Start 04/05 00:00 :00 Loratadine 10 MG Tablet 0 30 Tablet 5 0 2559370 430 Stop 01/08 00:00 :00 Montelukast Sodium 10 mg Tablet 1 90 1 680710 36 103 P Unknown Status 01/08 00:00 :00 Montelukast Sodium 10 mg Tablet 1 30 Tablet 0 68 368461 103 Taking 12/02 00:00 :00 Montelukast Sodium 10 mg Tablet 1 30 Tablet 0 68 724526 103 Start 01/08 00:00 :00 Oxygen - - 01/08/2025 00:00:00 1 P Start 01/08 00:00 :00 Rosuvastati n Calcium 20 MG Tablet 1 828 42259 090 Continue 01/08 00:00 :00 Rosuvastati n Calcium 20 MG Tablet 1 30 828 80494 090 Taking 12/02 00:00 :00 Singulair 10 MG Tablet 0 30 Tablet 5 66 506288 402 Stop 06/05 00:00 :00 Singulair 10 MG Tablet 1 30 Tablet 5 66 476393 402 Start 06/05 00:00 :00 Singulair 10 MG Tablet 0 30 Tablet 5 66 282305 402 Stop 01/08 00:00 :00 Tamsulosin HCl 0.4 mg Capsule 1 90 1 64641 013 210 P Unknown Status 01/08 00:00 :00 Tamsulosin HCl 0.4 mg Capsule 1 10 Capsule 0 81025472 210 Taking 01/01 00:00 :00 Tamsulosin HCl 0.4 mg Capsule 1 10 Capsule 0 46092061 210 Start 01/01 00:00 :00 Tamsulosin HCl 0.4 mg Capsule 0 30 Capsule 1 60660012 210 Stop 10/17 00:00 :00 Tamsulosin HCl 0.4 mg Capsule 1 30 Capsule 1 76211508 210 Start 10/17 00:00 :00 Tamsulosin HCl 0.4 mg Capsule 0 30 Capsule 5 71009028 210 Stop 10/11 00:00 :00 Tamsulosin HCl 0.4 mg Capsule 1 30 Capsule 5 [id number] 210 P Unknown Status 04/05 00:00 :00 Tamsulosin HCl 0.4 mg Capsule 1 30 Capsule 5 [id number] 210 Start 04/05 00:00 :00 Tamsulosin HCl 0.4 mg Capsule 0 30 Capsule 5 84047490 210 Stop 01/08 00:00 :00 Trelegy Ellipta 100-62. 5-25 MCG/ACT Aerosol Powder Breath Activated 1 5692220 8 710 Continue 01/08 00:00 :00 Trelegy Ellipta 100-62. 5-25 MCG/ACT Aerosol Powder Breath Activated 1 60 Blister 5 [id number] 710 Taking 10/04 00:00 :00 Trelegy Ellipta 100-62. 5-25 MCG/ACT Aerosol Powder Breath Activated 1 60 Blister 5 [id number] 710 Start 10/04 00:00 :00 Trelegy Ellipta 100-62. 5-25 MCG/ACT Aerosol Powder Breath Activated 0 60 Blister 5 [id number] 710 Stop 04/05 00:00 :00 Trelegy Ellipta 100-62. 5-25 MCG/ACT Aerosol Powder Breath Activated 1 60 Blister 5 [id number] 710 Start 04/05 00:00 :00 Trelegy Ellipta 100-62. 5-25 MCG/ACT Aerosol Powder Breath Activated 0 60 Blister 5 76417460 710 Stop 01/08 00:00 :00 Vitamin B-12 1000 MCG Tablet 1 26012824 601 Continue 01/08 00:00 :00 Vitamin B-12 1000 MCG Tablet 1 30 85895860 601 Taking 12/02 00:00 :00 Xopenex HFA 45 MCG/ACT Aerosol 0 1 5 59908358 601 Stop
--- NOTE | 2025-03-13 12:41 | CT_ITS ---
FINAL REPORT TECHNIQUE: Thin section axial images were obtained through the lungs using a low-dose technique per lung cancer screening protocol. Reconstruction images were obtained using the axial data. This study was performed with techniques to keep radiation doses as low as reasonably achievable, (ALARA). Individualized dose reduction techniques using automated exposure control or adjustment of mA and/or kV according to the patient's size were employed. CLINICAL HISTORY: TOBACCO USE. Smokes 1 ppd for 60+ yrs. Hx of COPD and Emphysema. Exposure to asbestos and second hand smoke. COMPARISON: 03/15/2024 FINDINGS: CTDLvol: 2.90 DLP: 113.59 Lungs: There are changes of emphysema. There are multiple bilateral pulmonary nodules. There is a new part solid nodule in the left upper lobe that measures 9 mm seen on image 26. There is a new 5 mm left upper lobe nodule seen on image 33. The remaining pulmonary nodules are stable. There is a filling defect within the right mainstem bronchus that contains air and is likely related to secretions. Lymph nodes: There is no lymphadenopathy. Mediastinum: There are prominent coronary artery calcifications. Pleura/pericardium: No pleural or pericardial effusion. Other: In the upper abdomen, there are bilateral renal stones. IMPRESSION: Two new left lung nodules, one is part solid and one is solid. Prominent coronary artery calcifications and renal stones. Lung RADS: 3S Recommendation: 6-month follow-up chest CT. Reviewed, Interpreted and Dictated by Essence Isabel MD Transcribed by Talita Holland Authenticated and [facility]
== END 2025-03-13 23:59 | disposition home or self-care (01) ==
LOC: RAD 12:37
PROVIDERS: PCP Family Medicine; Visit Provider Internal Medicine Pulmonary Disease
DX: F17.210 Nicotine dependence, cigarettes, uncomplicated (principal)
CPT/HCPCS: 71271